=== PATIENT | male | born 1970 | race Asian ===

== ENCOUNTER 2016-06-05 09:45 | Inpatient (IN) | payer MEDICARE, MEDICAID ==
[~2016-06-05] VITALS: Ht 172.7 cm; Wt 83.9 kg
[~2016-06-05 09:45] MED LIST: CELEXA20 MG ORAL; CLOZARIL100 MG ORAL; DIVALPROEX SOD500 MG PO; TOPIRAMATE100 MG ORAL
[2016-06-05] MEDS ORDERED: IBUPROFEN600 MG ORAL (14:44)
[2016-06-05 16:00] VITALS: BP 93/59
[2016-06-05] MEDS: Depakote 500mg tab ORAL SCH (18:41)
[2016-06-05] MEDS: Citalopram 20mg Tab ORAL SCH (18:41)
[2016-06-05] MEDS: Topiramate 100mg tab ORAL SCH (18:41)
[2016-06-05] MEDS: NS w/KCl 20mEq 1,000 ML IV SCH (18:42)
[2016-06-05 18:57] LABS: BASOPHILS % (AUTO) 0.3 % (0.0-2.0); EOSINOPHILS % (AUTO) 0.7 % (0.0-3.0); MEAN CORPUSCULAR HEMOGLOBIN 33.3 PG (27.0-31.0); MEAN CORPUSCULAR HGB CONC 36.2 G/DL (32.0-36.0); MEAN CORPUSCULAR VOLUME 92 FL (80-99); MEAN PLATELET VOLUME 5.5 FL (6.5-10.1); MONOCYTES % (AUTO) 2.3 % (1.0-10.0); NEUTROPHILS % (AUTO) 82.6 % (45.0-75.0); PLATELET COUNT 199 K/UL (150-450); RED BLOOD COUNT 2.89 M/UL (4.70-6.10); RED CELL DISTRIBUTION WIDTH 12.8 % (11.6-14.8); WHITE BLOOD COUNT 11.3 K/UL (4.8-10.8)
[2016-06-05 19:25] LABS: TROPONIN I < 0.30 ng/mL (<=0.30)
[2016-06-05 19:28] LABS: ALANINE AMINOTRANSFERASE 14 U/L (3-41); ALBUMIN/GLOBULIN RATIO 1.6 (1.0-2.7); ANION GAP 19 (5-15); ASPARTATE AMINO TRANSFERASE 14 U/L (5-40); CALCIUM 8.5 mg/dL (8.6-10.2); CARBON DIOXIDE 18 mEQ/L (20-30); CHLORIDE 97 mEQ/L (98-107); CREATININE 0.8 mg/dL (0.7-1.2); GLOMERULAR FILTRATION RATE > 60 mL/min (>60); POTASSIUM 3.8 mEQ/L (3.4-4.9); SODIUM 134 mEQ/L (135-145); TOTAL PROTEIN 5.3 g/dL (6.6-8.7)
[2016-06-05 20:00] VITALS: BP 106/62
[2016-06-05 20:35] LABS: HEMOLYSIS 13
--- NOTE | 2016-06-05 20:35 | Infectious Diseases Prog Note ---
Assessment/Plan Assessment/Plan Full consult dictated: A) 1) possible sepsis, leukocytosis, hypotension, HR > 90, sirs criteria met, lgt, weakness 2) leg lesions, ? bacterial, no tea cellulitis 3) anemia, intellectual disability, ? sz disease, ? psychiatric disease 4) allergies - tomato, nkda, fh-nc, sh-negative, mar noted, notes and records reviewed 5) d/w RN P) 1) vancomycin and cefepime 2) panculture, check chest x-ray, check labs 3) continue treatment per primary and consultants 4) orders entered and noted 5) thank you Subjective Allergies: Coded Allergies: NO KNOWN DRUG ALLERGIES (Unverified Allergy, Unknown, 11/22/13) TOMATO (Unverified Allergy, Unknown, 11/23/13) TOMATO FOOD ALLERGY Objective Vital Signs Last 24 Hour Vital Signs Date Time Temp Pulse Resp B/P Pulse Ox O2 Delivery O2 Flow Rate FiO2 06/05/16 16:00 99.0 98 18 93/59 100 Room Air Height (Feet): 5 Height (Inches): 8.00 Weight (Pounds): 185 Laboratory Tests Test 06/05/16 18:30 White Blood Count 11.3 K/UL (4.8-10.8) H Red Blood Count 2.89 M/UL (4.70-6.10) L Hemoglobin 9.6 G/DL (14.2-18.0) L Hematocrit 26.6 % (42.0-52.0) L Mean Corpuscular Volume 92 FL (80-99) Mean Corpuscular Hemoglobin 33.3 PG (27.0-31.0) H Mean Corpuscular Hemoglobin Concent 36.2 G/DL (32.0-36.0) H Red Cell Distribution Width 12.8 % (11.6-14.8) Platelet Count 199 K/UL (150-450) Mean Platelet Volume 5.5 FL (6.5-10.1) L Neutrophils (%) (Auto) 82.6 % (45.0-75.0) H Lymphocytes (%) (Auto) 14.0 % (20.0-45.0) L Monocytes (%) (Auto) 2.3 % (1.0-10.0) Eosinophils (%) (Auto) 0.7 % (0.0-3.0) Basophils (%) (Auto) 0.3 % (0.0-2.0) Sodium Level 134 mEQ/L (135-145) L Potassium Level 3.8 mEQ/L (3.4-4.9) Chloride Level 97 mEQ/L (98-107) L Carbon Dioxide Level 18 mEQ/L (20-30) L Anion Gap 19 (5-15) H Blood Urea Nitrogen Pending Creatinine 0.8 mg/dL (0.7-1.2) Estimat Glomerular Filtration Rate > 60 mL/min (>60) Glucose Level 143 mg/dL (74-106) H Calcium Level 8.5 mg/dL (8.6-10.2) L Total Bilirubin < 0.2 mg/dL (0.0-1.2) Aspartate Amino Transf (AST/SGOT) 14 U/L (5-40) Alanine Aminotransferase (ALT/SGPT) 14 U/L (3-41) Alkaline Phosphatase 162 U/L (40-129) H Troponin I < 0.30 ng/mL (<=0.30) Total Protein 5.3 g/dL (6.6-8.7) L Albumin 3.3 g/dL (3.5-5.2) L Globulin 2.0 g/dL Albumin/Globulin Ratio 1.6 (1.0-2.7) Current Medications Medications (Trade) Dose Ordered Sig/Jemima Route PRN Reason Start Time Stop Time Status Last Admin Dose Admin Acetaminophen (Tylenol) 650 mg Q4H PRN ORAL Mild Pain (Pain Scale 1-3) 06/05/16 16:45 07/05/16 16:44 Citalopram Hydrobromide (celeXA) 40 mg DAILY ORAL 06/05/16 18:00 07/05/16 17:59 06/05/16 18:41 Clozapine (Clozaril) 50 mg DAILY ORAL 06/06/16 09:00 06/13/16 08:59 Dextrose (Dextrose 50%) STAT PRN IV Hypoglycemia 06/05/16 16:45 07/05/16 16:44 Divalproex Sodium (Depakote) 500 mg BID ORAL 06/05/16 18:00 07/05/16 17:59 06/05/16 18:41 Pantoprazole (Protonix) 40 mg DAILY ORAL 06/05/16 18:00 07/05/16 17:59 06/05/16 18:41 Sodium Chloride (NS w/KCl 20mEq) 1,000 ml @ 50 mls/hr Q20H IV 06/05/16 18:00 07/05/16 17:59 06/05/16 18:42 Topiramate (Topamax) 100 mg TWICE A DAY ORAL 06/05/16 18:00 07/05/16 17:59 06/05/16 18:41 MIRLANDE HERNANDEZ Jun 05, 2016 20:35
[2016-06-05] MEDS: Piperacillin/Tazobactam 3.375 GM in NS 110 ML IVPB SCH (21:42)
[2016-06-05] MEDS ORDERED: Vancomycin 1.5 GM in D5W 325 ML IVPB SCH (23:17)
--- NOTE | 2016-06-05 23:47 | Consultation ---
DATE OF CONSULTATION: 06/05/2016 CHIEF COMPLAINT: The patient is a 45-year-old white male, presents with chief complaint of syncopal episode. HISTORY OF PRESENT ILLNESS: The patient is a resident of [facility] [place] The patient has mental retardation. The patient is cooperative with the interview, however, much of the history and physical is obtained from the patient's chart. According to staff at the [facility] [place] the patient became dizzy on 06/04/2016. The patient passed out. The patient was not out for a long period of time, less than one minute. The patient was initially taken to [facility] emergency room. The patient was transferred to [facility] for insurance purposes. The patient presents with a chief complaint of syncopal episode to rule out sepsis. REVIEW OF SYSTEMS: Constitutional: The patient denies weight loss or weight gain. The patient denies fevers or chills. HEENT: The patient denies ear or throat pain. The patient denies headache. Cardiovascular: The patient denies palpitations or chest pain. Chest: The patient denies wheezes or shortness of breath. Abdominal: The patient denies nausea, vomiting, diarrhea, or constipation. Genitourinary: The patient denies dysuria or increased frequency of urination. Neuromuscular: The patient denies seizures or generalized weakness. PAST MEDICAL HISTORY: Significant for: 1. Mental retardation. 2. Depression. PAST SURGICAL HISTORY: The patient denies. CURRENT MEDICATIONS: 1. Motrin 600 mg one tablet p.o. every six hours. 2. Celexa 40 mg one tablet p.o. daily. 3. Clozaril 100 mg one tablet p.o. daily. 4. Depakote 500 mg one tablet p.o. twice daily. 5. Topamax 100 mg one tablet p.o. twice daily. ALLERGIES: No known drug allergies. SOCIAL HISTORY: The patient is single and lives at a [facility] [place] The patient denies tobacco or alcohol use. PHYSICAL EXAMINATION: VITAL SIGNS: Temperature 97.9, respirations 19, pulse 83, and blood pressure at [facility] initially 76/46, current is 105/55. GENERAL: The patient is a well-developed and well-nourished white male, in no apparent distress. HEENT: Eyes, pupils are equal and responsive to light and accommodation. Extraocular movements are intact. NECK: Supple. No lymphadenopathy. CHEST: Lungs are clear to auscultation bilaterally without wheezes or rales. CARDIOVASCULAR: Regular rhythm and rate. S1 and S2 are normal without murmurs, rubs, or gallops. ABDOMEN: Soft, nontender, and nondistended. Positive bowel sounds. No evidence of hepatosplenomegaly. Currently, no rebound or guarding noted. EXTREMITIES: Negative for clubbing, cyanosis, or edema. RECTAL/GENITAL: Refused. NEUROLOGIC: Cranial nerves II through XII are grossly intact without focal deficits. Motor strength is 5/5 bilaterally. Deep tendon reflexes are 2+ plantar. The patient does have a deviation of the left eye. LABORATORY DATA: Laboratory studies from [facility], urinalysis was within normal limits. Sodium initially 126, potassium 3.9, chloride 95, CO2 23, BUN 25, creatinine 0.92, and glucose 107. WBC 13.4, hemoglobin 9.7, hematocrit 29.0, and platelets 208,000. ASSESSMENT: This is a 45-year-old white male with: 1. Syncopal episode. 2. Hypotension. 3. Syncope. 4. Hyponatremia. 5. Hypotension. 6. Leukocytosis. 7. Major depression. 8. Mental retardation. TREATMENT: 1. Hyponatremia. The patient is currently receiving normal saline. A CBC and BMP are pending. 2. Syncopal episode, this may be secondary to hypotension secondary to sepsis. This may also be secondary to hyponatremia as above. Serial CBCs will be run. Cultures are pending. 3. Leukocytosis. Infectious Disease consultation was obtained with Dr. Santana. 4. Major depression. Continue Celexa as above. 5. History of mental retardation. Brodie Gillis M.D. DR: JAVON JOB#: [id number] CC:
[2016-06-06] VITALS: BP 90/54
[2016-06-06 00:07] LABS: APPEARANCE,URINE CLEAR; KETONES,URINE NEGATIVE (NEGATIVE); LEUKOCYTE ESTERASE ,URINE NEGATIVE (NEGATIVE); NITRITE,URINE NEGATIVE (NEGATIVE); PH,URINE 8 (4.5-8.0); PROTEIN,URINE NEGATIVE (NEGATIVE); UROBILINOGEN,URINE 1 MG/DL (0.0-1.0)
--- NOTE | 2016-06-06 03:48 | Consultation ---
DATE OF CONSULTATION: INFECTIOUS DISEASE CONSULTATION CONSULTING PHYSICIAN: Lisa Todd M.D. ATTENDING PHYSICIAN: Ric Isabel M.D. I was asked to by Dr. Gillis, who is covering for Dr. Isabel to see this patient. REASON FOR CONSULTATION: Possible sepsis, low blood pressure, hypotension, leukocytosis. CHIEF COMPLAINT: The patient's chief complaint coming to the hospital is sepsis, hypotension. HISTORY OF PRESENT ILLNESS: This is a 45-year-old male with intellectual disability, who is a poor historian. The patient presented at an outside hospital with hypotension with systolic blood pressure in the 70s. The patient has SIRS criteria with elevated white count, was actually over 13, to be exact was 13.4. More importantly, the differential showed significant neutrophils, there were 92.3% neutrophils. The patient was transferred to [facility] and the patient has persistent leukocytosis and relatively low blood pressure. Infectious Disease consultation was requested for antibiotic management. The patient will be placed on broad-spectrum antibiotics and vancomycin and Zosyn. Of note, the patient has also elevated alkaline phosphatase and I will get an ultrasound of the abdomen, which has been ordered. MAR was noted. Orders were noted. Notes were reviewed. REVIEW OF SYSTEMS: Constitutional: The patient has no central line or Graham. He is alert, but is a poor historian. He has fevers. He came in with a low blood pressure. Head and neck: No head pain, thrush, dysphagia, or neck pain. Cardiac: No pressure. Gastrointestinal: No nausea, vomiting, or diarrhea. Genitourinary: No Graham. Pulmonary: No congestion or shortness of breath. Skin: No rash. Extremities: No joint pain. Neurological: No seizures. PAST MEDICAL HISTORY: The patient's past medical history includes the following. The patient has a past medical history of intellectual disability, history of anemia, questionable history of seizures, and psychiatric disease based on medications. He has no history of diabetes or hypertension. ALLERGIES: He has no known drug allergies. He is allergic to tomatoes. FAMILY HISTORY: Noncontributory. Negative for exposure to tuberculosis or cancer. SOCIAL HISTORY: Negative for smoking, alcohol, or drug abuse. MEDICATIONS: Upon reviewing the MAR, the patient is on the following medications. He is on Clozaril, Protonix, Celexa, Depakote, Topamax, and Tylenol. Outside medications noted and reconciliated. Antibiotics, he was placed on vancomycin and Zosyn. Please see medications and past medical history in medical order. PHYSICAL EXAMINATION: GENERAL: Alert and responsive. He is mildly lethargic, but is arousable and responsive, in no acute distress. VITAL SIGNS: Temperature 99.0, pulse rate 98, respiratory rate 18, blood pressure relatively low 92/59, and saturation 100%. Blood pressure at an outside facility was in the 70s and heart rate he was tachycardic. HEAD AND NECK: Oral exam, no thrush. Eye exam, no icterus. Neck is supple. Normocephalic. No JVD. No neck stiffness. HEART: Regular. No gallop or murmur. No obvious frictional rub. ABDOMEN: Soft. Positive bowel sounds. Nontender. No organomegaly. LUNGS: Clear bilaterally. No rhonchi or rales. SKIN: No obvious maculopapular rash, however, on the right lower extremity, he has some lesions. There is no obvious cellulitis or abscess, but there is mild erythema around the lesions. MUSCULOSKELETAL: No evidence of septic arthritis. Lower extremities, cellulitis. PERIPHERAL VASCULAR: No cyanosis or gangrene. RECTAL: Deferred. GENITOURINARY: No Graham. No CVA tenderness. LINES: Line sites without phlebitis. NEUROLOGIC: Generalized weakness. Responsive. LABORATORY DATA: Laboratory data is as follows: Creatinine is 0.8. Alkaline phosphatase is 162. White count 11.3, hemoglobin 9.6, and platelet count is 199,000. Outside white cell count was 13.4 with 92% neutrophils. Cultures are pending at this time. Urinalysis is pending. Chest x-ray is pending. ASSESSMENT AND PLAN: 1. The patient has possible sepsis with leukocytosis and hypotension and systemic inflammatory response syndrome criteria. White count was 13.4, which is more than 12 and heart rate has been consistently over 90. The patient because of persistent low blood pressure, I have a low threshold for antibiotics and we will place the patient on vancomycin and Zosyn pending cultures including blood cultures, urinalysis, culture and sensitivity, and . Must consider cholecystitis because of elevated alkaline phosphatase, we will get ultrasound. Continue vancomycin and Zosyn pending workup. Once the workup is back, we could tailor antibiotics or discontinue if everything is negative. In regards to the lesions on the leg, I am not clear if this is secondary to bacterial infection. There is no tea abscess or cellulitis of the lesions on the right leg. 2. Anemia. 3. Intellectual disability. 4. Questionable history of seizures based on medications. 5. Questionable history of psychiatric disease based on medications. 6. Allergies to tomatoes. 7. No known allergies. 8. Family history is noncontributory. 9. Social history is negative. 10. MAR was noted. 11. Notes were reviewed. 12. Case was discussed with RN. 13. Continue treatment per primary consultants. 14. Skin care per protocol. Thank you. I will follow. Lisa Todd M.D. DR: ALO JOB#: [id number] CC:
[2016-06-06 04:00] VITALS: BP 97/57
[2016-06-06] MEDS: Piperacillin/Tazobactam 3.375 GM in NS 110 ML IVPB SCH ×3 (06:05→22:31)
[2016-06-06 06:15] LABS: BASOPHILS % (AUTO) 0.6 % (0.0-2.0); EOSINOPHILS % (AUTO) 1.9 % (0.0-3.0); LYMPHOCYTES % (AUTO) 16.8 % (20.0-45.0); MEAN CORPUSCULAR HEMOGLOBIN 31.4 PG (27.0-31.0); MEAN CORPUSCULAR HGB CONC 34.6 G/DL (32.0-36.0); MEAN CORPUSCULAR VOLUME 91 FL (80-99); MONOCYTES % (AUTO) 5.9 % (1.0-10.0); NEUTROPHILS % (AUTO) 74.8 % (45.0-75.0); PLATELET COUNT 191 K/UL (150-450); RED BLOOD COUNT 3.53 M/UL (4.70-6.10); RED CELL DISTRIBUTION WIDTH 11.9 % (11.6-14.8); WHITE BLOOD COUNT 9.8 K/UL (4.8-10.8)
[2016-06-06 06:42] LABS: ANION GAP 15 (5-15); CALCIUM 8.3 mg/dL (8.6-10.2); CARBON DIOXIDE 27 mEQ/L (20-30); CHLORIDE 93 mEQ/L (98-107); CREATININE 0.8 mg/dL (0.7-1.2); GLOMERULAR FILTRATION RATE > 60 mL/min (>60); HEMOLYSIS 1; POTASSIUM 3.9 mEQ/L (3.4-4.9); SODIUM 135 mEQ/L (135-145); TROPONIN I < 0.30 ng/mL (<=0.30)
[2016-06-06 06:43] LABS: BILIRUBIN,DIRECT 0.3 mg/dL (0.1-0.3); TOTAL PROTEIN 6.1 g/dL (6.6-8.7)
[2016-06-06 08:00] VITALS: BP 101/46
[2016-06-06] MEDS: Topiramate 100mg tab ORAL SCH ×2 (08:56→17:28)
[2016-06-06] MEDS: Citalopram 20mg Tab ORAL SCH (08:56)
[2016-06-06] MEDS: Depakote 500mg tab ORAL SCH ×2 (08:57→17:28)
[2016-06-06] MEDS ORDERED: Vancomycin 1.5 GM in D5W 325 ML IVPB SCH (10:00)
--- NOTE | 2016-06-06 10:34 | Diagnostic Imaging Report ---
Indication: COUGH Technique: One view of the chest Comparison: none Findings: There are low lung volumes and slight elevation left hemidiaphragm. There is some atelectasis at the left lung base. There is hazy infiltrate throughout the right lung. There is equivocal blunting of left costophrenic sulcus, small effusion not excludable. The heart is upper limits of normal in size. Impression: Left basilar atelectasis and elevated left hemidiaphragm. Possible small left pleural effusion Diffuse faint infiltrates throughout the right lung. Correlate with clinical findings
[2016-06-06] MEDS: Vancomycin 1.5 GM in D5W 325 ML IVPB SCH (11:17)
[2016-06-06 12:00] VITALS: BP 93/57
[2016-06-06] MEDS: NS w/KCl 20mEq 1,000 ML IV SCH (13:32)
--- NOTE | 2016-06-06 14:08 | Cardiac Electrophysiology PN ---
Subjective Subjective [id number] Objective Last 24 Hour Vital Signs Date Time Temp Pulse Resp B/P Pulse Ox O2 Delivery O2 Flow Rate FiO2 06/06/16 12:00 79 06/06/16 12:00 97.2 82 20 93/57 98 Room Air 06/06/16 08:00 70 06/06/16 08:00 98.1 68 18 101/46 97 Room Air 06/06/16 04:00 87 06/06/16 04:00 97.7 73 18 97/57 100 Room Air 06/06/16 00:00 98.1 79 20 90/54 96 Room Air 06/06/16 00:00 81 06/05/16 20:00 107 06/05/16 20:00 98.6 84 16 106/62 100 Room Air 06/05/16 16:00 99.0 98 18 93/59 100 Room Air 06/05/16 16:00 94 Intake and Output 06/05/16 06/06/16 19:00 07:00 Intake Total 1333.33 ml Balance 1333.33 ml Intake Oral 360 ml IV Total 973.33 ml # Voids 6 # Bowel Movements 1 1 Laboratory Tests Test 06/05/16 18:30 06/05/16 22:30 06/05/16 23:30 06/06/16 04:35 White Blood Count 11.3 K/UL (4.8-10.8) H 9.8 K/UL (4.8-10.8) Red Blood Count 2.89 M/UL (4.70-6.10) L 3.53 M/UL (4.70-6.10) L Hemoglobin 9.6 G/DL (14.2-18.0) L 11.1 G/DL (14.2-18.0) L Hematocrit 26.6 % (42.0-52.0) L 32.0 % (42.0-52.0) L Mean Corpuscular Volume 92 FL (80-99) 91 FL (80-99) Mean Corpuscular Hemoglobin 33.3 PG (27.0-31.0) H 31.4 PG (27.0-31.0) H Mean Corpuscular Hemoglobin Concent 36.2 G/DL (32.0-36.0) H 34.6 G/DL (32.0-36.0) Red Cell Distribution Width 12.8 % (11.6-14.8) 11.9 % (11.6-14.8) Platelet Count 199 K/UL (150-450) 191 K/UL (150-450) Mean Platelet Volume 5.5 FL (6.5-10.1) L 11.0 FL (6.5-10.1) H Neutrophils (%) (Auto) 82.6 % (45.0-75.0) H 74.8 % (45.0-75.0) Lymphocytes (%) (Auto) 14.0 % (20.0-45.0) L 16.8 % (20.0-45.0) L Monocytes (%) (Auto) 2.3 % (1.0-10.0) 5.9 % (1.0-10.0) Eosinophils (%) (Auto) 0.7 % (0.0-3.0) 1.9 % (0.0-3.0) Basophils (%) (Auto) 0.3 % (0.0-2.0) 0.6 % (0.0-2.0) Sodium Level 134 mEQ/L (135-145) L 135 mEQ/L (135-145) Potassium Level 3.8 mEQ/L (3.4-4.9) 3.9 mEQ/L (3.4-4.9) Chloride Level 97 mEQ/L (98-107) L 93 mEQ/L (98-107) L Carbon Dioxide Level 18 mEQ/L (20-30) L 27 mEQ/L (20-30) Anion Gap 19 (5-15) H 15 (5-15) Blood Urea Nitrogen 16 mg/dL (7-23) 7 mg/dL (7-23) Creatinine 0.8 mg/dL (0.7-1.2) 0.8 mg/dL (0.7-1.2) Estimat Glomerular Filtration Rate > 60 mL/min (>60) > 60 mL/min (>60) Glucose Level 143 mg/dL (74-106) H 205 mg/dL (74-106) H Calcium Level 8.5 mg/dL (8.6-10.2) L 8.3 mg/dL (8.6-10.2) L Total Bilirubin < 0.2 mg/dL (0.0-1.2) 0.9 mg/dL (0.0-1.2) Aspartate Amino Transf (AST/SGOT) 14 U/L (5-40) 28 U/L (5-40) Alanine Aminotransferase (ALT/SGPT) 14 U/L (3-41) 23 U/L (3-41) Alkaline Phosphatase 162 U/L (40-129) H 66 U/L (40-129) Troponin I < 0.30 ng/mL (<=0.30) < 0.30 ng/mL (<=0.30) Total Protein 5.3 g/dL (6.6-8.7) L 6.1 g/dL (6.6-8.7) L Albumin 3.3 g/dL (3.5-5.2) L 3.0 g/dL (3.5-5.2) L Globulin 2.0 g/dL Albumin/Globulin Ratio 1.6 (1.0-2.7) Random Vancomycin Level 3.3 ug/mL Urine Color Pale yellow Urine Appearance Clear Urine pH 8 (4.5-8.0) Urine Specific Murray 1.015 (1.005-1.035) Urine Protein Negative (NEGATIVE) Urine Glucose (UA) Negative (NEGATIVE) Urine Ketones Negative (NEGATIVE) Urine Occult Blood Negative (NEGATIVE) Urine Nitrite Negative (NEGATIVE) Urine Bilirubin Negative (NEGATIVE) Urine Urobilinogen 1 MG/DL (0.0-1.0) H Urine Leukocyte Esterase Negative (NEGATIVE) Direct Bilirubin 0.3 mg/dL (0.1-0.3) LIVIER THOMPSON Jun 06, 2016 14:08
--- NOTE | 2016-06-06 14:27 | Diagnostic Imaging Report ---
Indication: Abnormal alkaline phosphatase, abdominal pain Technique: Barr-scale and duplex images of the upper abdomen were obtained Comparison: None Findings: Exam is limited due to body habitus. Gallbladder is unremarkable, without stones, wall thickening, nor pericholecystic fluid. Sonographic Augustin's sign is negative. Common bile duct measures 4 mm in diameter. No intrahepatic biliary ductal dilatation. Liver demonstrates diffusely increased echogenicity, consistent with diffuse hepatocellular disease, most likely fatty change. It is mildly enlarged. Note, however, suboptimal visualization of the left hepatic lobe. Portal vein and hepatic veins are patent.. Pancreas is obscured by bowel gas. Spleen is unremarkable. Left kidney measures 10.8 cm in length. Right kidney measures 12.4 cm length. Both kidneys demonstrate normal echogenicity. There is no hydronephrosis. There is a 13 mm cyst in the left kidney. Abdominal aorta is partially obscured by bowel gas, visualized portions are non-aneurysmal. Impression: Liver demonstrates diffusely increased echogenicity, consistent with diffuse hepatocellular disease, most likely fatty change. Mild hepatomegaly Negative for gallstones or dilated ducts Limited exam, with suboptimal visualization of the abdominal aorta and left hepatic lobe, absent visualization of the pancreas Incidental finding small left renal cyst
--- NOTE | 2016-06-06 15:04 | History and Physical ---
History of Present Illness General Date patient seen: Jun 06, 2016 Present Illness HPI 45 year old male with cognitive deficit, was taken to [facility], with CC of dizziness and hypotension. He was diagnosed to have sepsis and transferred to [facility] for further workup. Pt is awake, looks comfortable. It s difficult to get any history from the patient. He is just c/o of hunger now. Allergies: Coded Allergies: NO KNOWN DRUG ALLERGIES (Unverified Allergy, Unknown, 11/22/13) TOMATO (Unverified Allergy, Unknown, 11/23/13) TOMATO FOOD ALLERGY Medication History Scheduled Citalopram Hydrobromide* (Celexa*), 40 MG ORAL DAILY, (Reported) Clozapine* (Clozaril*), 50 MG ORAL DAILY Divalproex Sodium (Divalproex Sodium), 500 MG PO BID, (Reported) Topiramate* (Topamax*), 100 MG ORAL TWICE A DAY, (Reported) Scheduled PRN Ibuprofen* (Motrin*), 600 MG ORAL Q8H PRN for For Pain, (Reported) Patient History Healthcare decision maker Resuscitation status Full Code Advanced Directive on File Past Medical/Surgical History Past Medical/Surgical History: (1) Development delay Review of Systems All Other Systems: negative except mentioned in HPI Physical Exam General Appearance: WD/WN Lines, tubes and drains: peripheral HEENT: normocephalic, atraumatic Neck: non-tender, normal alignment Respiratory/Chest: chest wall non-tender, lungs clear Cardiovascular/Chest: normal peripheral pulses, normal rate Genitourinary/Rectal: normal genital exam Extremities: normal range of motion Last 24 Hour Vital Signs Date Time Temp Pulse Resp B/P Pulse Ox O2 Delivery O2 Flow Rate FiO2 06/06/16 12:00 79 06/06/16 12:00 97.2 82 20 93/57 98 Room Air 06/06/16 08:00 70 06/06/16 08:00 98.1 68 18 101/46 97 Room Air 06/06/16 04:00 87 06/06/16 04:00 97.7 73 18 97/57 100 Room Air 06/06/16 00:00 98.1 79 20 90/54 96 Room Air 06/06/16 00:00 81 06/05/16 20:00 107 06/05/16 20:00 98.6 84 16 106/62 100 Room Air 06/05/16 16:00 99.0 98 18 93/59 100 Room Air 06/05/16 16:00 94 Intake and Output 06/05/16 06/06/16 19:00 07:00 Intake Total 1333.33 ml Balance 1333.33 ml Intake Oral 360 ml IV Total 973.33 ml # Voids 6 # Bowel Movements 1 1 Laboratory Tests Test 06/05/16 18:30 06/05/16 22:30 06/05/16 23:30 06/06/16 04:35 White Blood Count 11.3 K/UL (4.8-10.8) H 9.8 K/UL (4.8-10.8) Red Blood Count 2.89 M/UL (4.70-6.10) L 3.53 M/UL (4.70-6.10) L Hemoglobin 9.6 G/DL (14.2-18.0) L 11.1 G/DL (14.2-18.0) L Hematocrit 26.6 % (42.0-52.0) L 32.0 % (42.0-52.0) L Mean Corpuscular Volume 92 FL (80-99) 91 FL (80-99) Mean Corpuscular Hemoglobin 33.3 PG (27.0-31.0) H 31.4 PG (27.0-31.0) H Mean Corpuscular Hemoglobin Concent 36.2 G/DL (32.0-36.0) H 34.6 G/DL (32.0-36.0) Red Cell Distribution Width 12.8 % (11.6-14.8) 11.9 % (11.6-14.8) Platelet Count 199 K/UL (150-450) 191 K/UL (150-450) Mean Platelet Volume 5.5 FL (6.5-10.1) L 11.0 FL (6.5-10.1) H Neutrophils (%) (Auto) 82.6 % (45.0-75.0) H 74.8 % (45.0-75.0) Lymphocytes (%) (Auto) 14.0 % (20.0-45.0) L 16.8 % (20.0-45.0) L Monocytes (%) (Auto) 2.3 % (1.0-10.0) 5.9 % (1.0-10.0) Eosinophils (%) (Auto) 0.7 % (0.0-3.0) 1.9 % (0.0-3.0) Basophils (%) (Auto) 0.3 % (0.0-2.0) 0.6 % (0.0-2.0) Sodium Level 134 mEQ/L (135-145) L 135 mEQ/L (135-145) Potassium Level 3.8 mEQ/L (3.4-4.9) 3.9 mEQ/L (3.4-4.9) Chloride Level 97 mEQ/L (98-107) L 93 mEQ/L (98-107) L Carbon Dioxide Level 18 mEQ/L (20-30) L 27 mEQ/L (20-30) Anion Gap 19 (5-15) H 15 (5-15) Blood Urea Nitrogen 16 mg/dL (7-23) 7 mg/dL (7-23) Creatinine 0.8 mg/dL (0.7-1.2) 0.8 mg/dL (0.7-1.2) Estimat Glomerular Filtration Rate > 60 mL/min (>60) > 60 mL/min (>60) Glucose Level 143 mg/dL (74-106) H 205 mg/dL (74-106) H Calcium Level 8.5 mg/dL (8.6-10.2) L 8.3 mg/dL (8.6-10.2) L Total Bilirubin < 0.2 mg/dL (0.0-1.2) 0.9 mg/dL (0.0-1.2) Aspartate Amino Transf (AST/SGOT) 14 U/L (5-40) 28 U/L (5-40) Alanine Aminotransferase (ALT/SGPT) 14 U/L (3-41) 23 U/L (3-41) Alkaline Phosphatase 162 U/L (40-129) H 66 U/L (40-129) Troponin I < 0.30 ng/mL (<=0.30) < 0.30 ng/mL (<=0.30) Total Protein 5.3 g/dL (6.6-8.7) L 6.1 g/dL (6.6-8.7) L Albumin 3.3 g/dL (3.5-5.2) L 3.0 g/dL (3.5-5.2) L Globulin 2.0 g/dL Albumin/Globulin Ratio 1.6 (1.0-2.7) Random Vancomycin Level 3.3 ug/mL Urine Color Pale yellow Urine Appearance Clear Urine pH 8 (4.5-8.0) Urine Specific [place] 1.015 (1.005-1.035) Urine Protein Negative (NEGATIVE) Urine Glucose (UA) Negative (NEGATIVE) Urine Ketones Negative (NEGATIVE) Urine Occult Blood Negative (NEGATIVE) Urine Nitrite Negative (NEGATIVE) Urine Bilirubin Negative (NEGATIVE) Urine Urobilinogen 1 MG/DL (0.0-1.0) H Urine Leukocyte Esterase Negative (NEGATIVE) Direct Bilirubin 0.3 mg/dL (0.1-0.3) Height (Feet): 5 Height (Inches): 8.00 Weight (Pounds): 185 Medications Current Medications Medications (Trade) Dose Ordered Sig/Jemima Route PRN Reason Start Time Stop Time Status Last Admin Dose Admin Acetaminophen (Tylenol) 650 mg Q4H PRN ORAL Mild Pain (Pain Scale 1-3) 06/05/16 16:45 07/05/16 16:44 06/06/16 02:28 Citalopram Hydrobromide (celeXA) 40 mg DAILY ORAL 06/05/16 18:00 07/05/16 17:59 06/06/16 08:56 Clozapine (Clozaril) 50 mg DAILY ORAL 06/06/16 09:00 06/13/16 08:59 06/06/16 08:56 Dextrose (Dextrose 50%) STAT PRN IV Hypoglycemia 06/05/16 16:45 07/05/16 16:44 Divalproex Sodium (Depakote) 500 mg BID ORAL 06/05/16 18:00 07/05/16 17:59 06/06/16 08:57 Pantoprazole (Protonix) 40 mg DAILY ORAL 06/05/16 18:00 07/05/16 17:59 06/06/16 08:56 Piperacillin Sod/ Tazobactam Sod 3.375 gm/Sodium Chloride 110 ml @ 27.5 mls/hr EVERY 8 HOURS IVPB 06/05/16 22:00 06/10/16 21:59 4/7/17 13:32 Sodium Chloride (NS w/KCl 20mEq) 1,000 ml @ 50 mls/hr Q20H IV 06/05/16 18:00 07/05/16 17:59 06/06/16 13:32 Topiramate (Topamax) 100 mg TWICE A DAY ORAL 06/05/16 18:00 07/05/16 17:59 06/06/16 08:56 Vancomycin HCl 1 ea 1 ea DAILY PRN MISC Per rx protocol 06/05/16 20:45 07/05/16 20:44 Vancomycin HCl/ Dextrose (Vancomycin/D5W) 325 ml @ 162.5 mls/ hr Q12HR@0000,1200 IVPB 06/06/16 12:00 06/11/16 11:59 06/06/16 11:17 Assessment/Plan Problem List: (1) Interstitial pneumonia ICD Codes: J84.9 - Interstitial pulmonary disease, unspecified SNOMED: 80861143 (2) Sepsis ICD Codes: A41.9 - Sepsis, unspecified organism SNOMED: 13030036 (3) Syncope ICD Codes: R55 - Syncope and collapse SNOMED: 163671123 (4) Hypotension ICD Codes: I95.9 - Hypotension, unspecified SNOMED: 25989800 (5) Development delay ICD Codes: R62.50 - Unspecified lack of expected normal physiological development in childhood SNOMED: 652062988 Assessment/Plan panculture IV antibioitcs check cultures anemia w/u check sputum sputum induction PHILLIP NAYLOR Jun 06, 2016 15:04
[2016-06-06] MEDS ORDERED: Promethazine/Codeine 5ml UD ORAL PRN (15:15)
[2016-06-06 16:00] VITALS: BP 86/48
[2016-06-06 16:56] LABS: ERYTHROCYTE SEDIMENTATION RATE 56 MM/HR (0-15)
[2016-06-06 17:05] LABS: INR 1.1 (0.9-1.1)
--- NOTE | 2016-06-06 17:39 | Internal Med Progress Note ---
Subjective Date of Service: Jun 06, 2016 Physician Name Brodie Lopez Attending Physician Ric Isabel MD Current Medications Medications (Trade) Dose Ordered Sig/Jemima Route PRN Reason Start Time Stop Time Status Last Admin Dose Admin Acetaminophen (Tylenol) 650 mg Q4H PRN ORAL Mild Pain (Pain Scale 1-3) 06/05/16 16:45 07/05/16 16:44 06/06/16 02:28 Citalopram Hydrobromide (celeXA) 40 mg DAILY ORAL 06/05/16 18:00 07/05/16 17:59 06/06/16 08:56 Clozapine (Clozaril) 50 mg DAILY ORAL 06/06/16 09:00 06/13/16 08:59 06/06/16 08:56 Dextrose (Dextrose 50%) STAT PRN IV Hypoglycemia 06/05/16 16:45 07/05/16 16:44 Divalproex Sodium (Depakote) 500 mg BID ORAL 06/05/16 18:00 07/05/16 17:59 06/06/16 17:28 Pantoprazole (Protonix) 40 mg DAILY ORAL 06/05/16 18:00 07/05/16 17:59 06/06/16 08:56 Piperacillin Sod/ Tazobactam Sod 3.375 gm/Sodium Chloride 110 ml @ 27.5 mls/hr EVERY 8 HOURS IVPB 06/05/16 22:00 06/10/16 21:59 06/06/16 13:32 Promethazine HCl/ Codeine (Phenergan with Codeine) 5 ml Q4H PRN ORAL For Cough 06/06/16 15:15 07/06/16 15:14 Sodium Chloride (NS w/KCl 20mEq) 1,000 ml @ 50 mls/hr Q20H IV 06/05/16 18:00 07/05/16 17:59 06/06/16 13:32 Topiramate (Topamax) 100 mg TWICE A DAY ORAL 06/05/16 18:00 07/05/16 17:59 06/06/16 17:28 Vancomycin HCl 1 ea 1 ea DAILY PRN MISC Per rx protocol 06/05/16 20:45 07/05/16 20:44 Vancomycin HCl/ Dextrose (Vancomycin/D5W) 325 ml @ 162.5 mls/ hr Q12HR@0000,1200 IVPB 06/06/16 12:00 06/11/16 11:59 06/06/16 11:17 Allergies: Coded Allergies: NO KNOWN DRUG ALLERGIES (Unverified Allergy, Unknown, 11/22/13) TOMATO (Unverified Allergy, Unknown, 11/23/13) TOMATO FOOD ALLERGY ROS Limited/Unobtainable: No Constitutional: Reports: no symptoms HEENT: Reports: no symptoms Cardiovascular: Reports: no symptoms Respiratory: Reports: no symptoms Gastrointestinal/Abdominal: Reports: no symptoms Genitourinary: Reports: no symptoms Neurologic/Psychiatric: Reports: no symptoms Subjective 45 YO M admitted with syncope and hyponatremia. Cover for Int Med-Dr Isabel. Objective Last Vital Signs Date Time Temp Pulse Resp B/P Pulse Ox O2 Delivery O2 Flow Rate FiO2 06/06/16 16:00 97.9 76 20 86/48 96 Room Air General Appearance: WD/WN, no apparent distress, alert EENT: PERRL/EOMI, normal ENT inspection, other - exoptopia OS Neck: non-tender, normal alignment, supple Cardiovascular: normal peripheral pulses, normal rate, regular rhythm, no gallop/murmur, no JVD Respiratory/Chest: chest wall non-tender, lungs clear, normal breath sounds, no respiratory distress, no accessory muscle use Abdomen: normal bowel sounds, non tender, soft, no organomegaly, no mass Extremities: normal range of motion Neurologic: forensics analyst II-XII grossly normal, no motor/sensory deficits Skin: normal pigmentation, warm/dry Laboratory Tests Test 06/05/16 18:30 06/05/16 22:30 06/05/16 23:30 06/06/16 04:35 White Blood Count 11.3 K/UL (4.8-10.8) H 9.8 K/UL (4.8-10.8) Red Blood Count 2.89 M/UL (4.70-6.10) L 3.53 M/UL (4.70-6.10) L Hemoglobin 9.6 G/DL (14.2-18.0) L 11.1 G/DL (14.2-18.0) L Hematocrit 26.6 % (42.0-52.0) L 32.0 % (42.0-52.0) L Mean Corpuscular Volume 92 FL (80-99) 91 FL (80-99) Mean Corpuscular Hemoglobin 33.3 PG (27.0-31.0) H 31.4 PG (27.0-31.0) H Mean Corpuscular Hemoglobin Concent 36.2 G/DL (32.0-36.0) H 34.6 G/DL (32.0-36.0) Red Cell Distribution Width 12.8 % (11.6-14.8) 11.9 % (11.6-14.8) Platelet Count 199 K/UL (150-450) 191 K/UL (150-450) Mean Platelet Volume 5.5 FL (6.5-10.1) L 11.0 FL (6.5-10.1) H Neutrophils (%) (Auto) 82.6 % (45.0-75.0) H 74.8 % (45.0-75.0) Lymphocytes (%) (Auto) 14.0 % (20.0-45.0) L 16.8 % (20.0-45.0) L Monocytes (%) (Auto) 2.3 % (1.0-10.0) 5.9 % (1.0-10.0) Eosinophils (%) (Auto) 0.7 % (0.0-3.0) 1.9 % (0.0-3.0) Basophils (%) (Auto) 0.3 % (0.0-2.0) 0.6 % (0.0-2.0) Sodium Level 134 mEQ/L (135-145) L 135 mEQ/L (135-145) Potassium Level 3.8 mEQ/L (3.4-4.9) 3.9 mEQ/L (3.4-4.9) Chloride Level 97 mEQ/L (98-107) L 93 mEQ/L (98-107) L Carbon Dioxide Level 18 mEQ/L (20-30) L 27 mEQ/L (20-30) Anion Gap 19 (5-15) H 15 (5-15) Blood Urea Nitrogen 16 mg/dL (7-23) 7 mg/dL (7-23) Creatinine 0.8 mg/dL (0.7-1.2) 0.8 mg/dL (0.7-1.2) Estimat Glomerular Filtration Rate > 60 mL/min (>60) > 60 mL/min (>60) Glucose Level 143 mg/dL (74-106) H 205 mg/dL (74-106) H Calcium Level 8.5 mg/dL (8.6-10.2) L 8.3 mg/dL (8.6-10.2) L Total Bilirubin < 0.2 mg/dL (0.0-1.2) 0.9 mg/dL (0.0-1.2) Aspartate Amino Transf (AST/SGOT) 14 U/L (5-40) 28 U/L (5-40) Alanine Aminotransferase (ALT/SGPT) 14 U/L (3-41) 23 U/L (3-41) Alkaline Phosphatase 162 U/L (40-129) H 66 U/L (40-129) Troponin I < 0.30 ng/mL (<=0.30) < 0.30 ng/mL (<=0.30) Total Protein 5.3 g/dL (6.6-8.7) L 6.1 g/dL (6.6-8.7) L Albumin 3.3 g/dL (3.5-5.2) L 3.0 g/dL (3.5-5.2) L Globulin 2.0 g/dL Albumin/Globulin Ratio 1.6 (1.0-2.7) Random Vancomycin Level 3.3 ug/mL Urine Color Pale yellow Urine Appearance Clear Urine pH 8 (4.5-8.0) Urine Specific [place] 1.015 (1.005-1.035) Urine Protein Negative (NEGATIVE) Urine Glucose (UA) Negative (NEGATIVE) Urine Ketones Negative (NEGATIVE) Urine Occult Blood Negative (NEGATIVE) Urine Nitrite Negative (NEGATIVE) Urine Bilirubin Negative (NEGATIVE) Urine Urobilinogen 1 MG/DL (0.0-1.0) H Urine Leukocyte Esterase Negative (NEGATIVE) Direct Bilirubin 0.3 mg/dL (0.1-0.3) Test 06/06/16 08:00 06/06/16 16:15 Erythrocyte Sedimentation Rate 56 MM/HR (0-15) H Reticulocyte Count Pending Iron Level 38 ug/dL (59-158) L Total Iron Binding Capacity 211 ug/dL (250-400) L Percent Iron Saturation 18 % (15-50) Unsaturated Iron Binding 173 ug/dL (112-346) Lactate Dehydrogenase 222 U/L (135-230) Carcinoembryonic Antigen 1.9 ng/mL Vitamin B12 Level 533 pg/mL (211-946) Folate Pending Prothrombin Time 11.0 SEC (9.30-11.50) Prothromb Time International Ratio 1.1 (0.9-1.1) Activated Partial Thromboplast Time 30 SEC (23-33) Intake and Output 06/05/16 06/06/16 19:00 07:00 Intake Total 1333.33 ml Balance 1333.33 ml Intake Oral 360 ml IV Total 973.33 ml # Voids 6 # Bowel Movements 1 1 Assessment/Plan Problem List: (1) Hyponatremia Assessment & Plan: Resolving on IV fluids. (2) Leukocytosis Assessment & Plan: Cont vanco and zosyn. (3) Major depression Assessment & Plan: Cont clozaril. (4) Mental retardation (5) Hypotension (6) Syncope Assessment & Plan: Serial troponin. Status: not improved BRODIE LOPEZ Jun 06, 2016 17:39
[2016-06-06 19:00] VITALS: BP 92/54
[2016-06-06 19:07] LABS: RETICULOCYTE COUNT 1.7 % (0.0-2.0)
[2016-06-06] MEDS ORDERED: Tubing IV Secondary IV ONE (19:29)
[2016-06-06] MEDS ORDERED: NS 275ml ONE (19:29)
[2016-06-07] VITALS: BP 127/57
--- NOTE | 2016-06-07 00:08 | Consultation ---
DATE OF CONSULTATION: 06/06/2016 CARDIOLOGY CONSULTATION CONSULTING PHYSICIAN: Octavio Carrion M.D. REFERRING PHYSICIAN: Ric Isabel M.D. REASON FOR CONSULTATION: Syncope. HISTORY OF PRESENT ILLNESS: The patient is a 45-year-old gentleman with history of mental retardation, who was admitted to the hospital after he became dizzy and passed out on 06/04/2016. The patient was not out for a long period of time. The patient was initially taken to [facility] emergency room and was then transferred to [facility] as the patient is not a [facility] member. At the time of my evaluation, the patient is pleasantly confused. On telemetry he underwent arrhythmia overnight. REVIEW OF SYSTEMS: Negative other than what was mentioned in the history of present illness. PAST MEDICAL HISTORY: 1. Mental retardation. 2. Depression. MEDICATIONS: At the senior living include Celexa, Motrin, Clozaril, Depakote and Topamax. ALLERGIES: He has no known drug allergies. SOCIAL HISTORY: He lives in a board and care. He is single. He does not smoke or drink alcohol. PHYSICAL EXAMINATION: VITAL SIGNS: Blood pressure is 92/57, pulse 89, respiratory 20, temperature 98 degrees NECK: Showed no JVD or carotid bruits. LUNGS: Clear. CARDIOVASCULAR: Shows regular S1 and S2 with no gallop or murmur. ABDOMEN: Soft. EXTREMITIES: No pitting edema. LABORATORY DATA: White count 9.8, hemoglobin 11.9, hematocrit 32, platelet count 191,000. Sodium 135, potassium 3.9, BUN of 7, and creatinine 0.8, and glucose of 205. Alcohol level is negative. Urinalysis is negative. ASSESSMENT AND PLAN: 1. Syncopal episode. Etiology is not clear at this time. The patient was ruled out for myocardial infarction. We will do serial cardiac enzymes. His EKG is nonischemic. We will get an echocardiogram to evaluate for ejection fraction and wall motion abnormality. Neuro evaluation is also pending. 2. Possible sepsis with leukocytosis and hypotension. The patient has SIRS criteria. The patient was started on broad-spectrum antibiotics with vancomycin and Zosyn. 3. Questionable history of seizure disorder. 4. Mental retardation. Thank very much, Dr. Isabel for allowing me to participate in the care of this patient. Please do not hesitate to contact me for any questions regarding my evaluation. Octavio Carrion M.D. DR: AVINASH JOB#: [id number] CC:
[2016-06-07] MEDS: Vancomycin 1.5 GM in D5W 325 ML IVPB SCH ×2 (01:31→11:58)
[2016-06-07 04:00] VITALS: BP 108/61
[2016-06-07] MEDS: Piperacillin/Tazobactam 3.375 GM in NS 110 ML IVPB SCH ×3 (06:19→22:16)
[2016-06-07 07:30] LABS: BASOPHILS % (AUTO) 0.7 % (0.0-2.0); EOSINOPHILS % (AUTO) 1.6 % (0.0-3.0); LYMPHOCYTES % (AUTO) 13.1 % (20.0-45.0); MEAN CORPUSCULAR VOLUME 94 FL (80-99); MEAN PLATELET VOLUME 5.7 FL (6.5-10.1); MONOCYTES % (AUTO) 5.7 % (1.0-10.0); PLATELET COUNT 207 K/UL (150-450); RED BLOOD COUNT 2.73 M/UL (4.70-6.10); RED CELL DISTRIBUTION WIDTH 13.8 % (11.6-14.8); WHITE BLOOD COUNT 8.9 K/UL (4.8-10.8)
[2016-06-07 07:51] VITALS: BP 93/59
[2016-06-07 08:02] LABS: TROPONIN I < 0.30 ng/mL (<=0.30)
[2016-06-07 08:05] LABS: ANION GAP 16 (5-15); CALCIUM 8.3 mg/dL (8.6-10.2); CARBON DIOXIDE 20 mEQ/L (20-30); CHLORIDE 100 mEQ/L (98-107); CREATININE 0.8 mg/dL (0.7-1.2); GLOMERULAR FILTRATION RATE > 60 mL/min (>60); HEMOLYSIS 23; POTASSIUM 4.2 mEQ/L (3.4-4.9); SODIUM 136 mEQ/L (135-145)
[2016-06-07] MEDS: Depakote 500mg tab ORAL SCH ×2 (08:07→18:41)
[2016-06-07] MEDS: Topiramate 100mg tab ORAL SCH ×2 (08:07→18:40)
[2016-06-07] MEDS: Citalopram 20mg Tab ORAL SCH (08:08)
[2016-06-07 08:13] LABS: THYROID STIMULATING HORMONE 7.54 uIU/mL (0.300-4.500)
[2016-06-07 08:20] LABS: ANISOCYTOSIS 1+; BAND NEUTROPHILS % (MANUAL) 0 % (0-8); BASOPHILS % (MANUAL) 0 % (0-2); EOSINOPHILS % (MANUAL) 0 % (0-3); HYPOCHROMASIA 1+; LYMPHOCYTES % (MANUAL) 13 % (20-45); NEUTROPHILS % (MANUAL) 80 % (45-75); PLATELET ESTIMATE ADEQUATE; PLATELET MORPHOLOGY NORMAL; TOTAL CELLS COUNTED 100
[2016-06-07 09:18] LABS: PATH BLOOD SMEAR/OMC SENT TO PATHOLOGIST
[2016-06-07] MEDS: NS w/KCl 20mEq 1,000 ML IV SCH (10:14)
[2016-06-07 11:53] VITALS: BP 148/63
--- NOTE | 2016-06-07 11:55 | Infectious Diseases Prog Note ---
Assessment/Plan Assessment/Plan A) 1) cap pna vs aspiration/hcap pna 2) sepsis, leukocytosis better, lgt, weakness, uc-negative 3) anemia, intellectual disability, ? sz disease, ? psychiatric disease 4) allergies - tomato, nkda, fh-nc, sh-negative, mar noted, notes and records reviewed 5) d/w RN P) 1) zosyn and vancomycin 2) check sputum culture, labs and f/u chest x-ray, bc 3) continue treatment per primary and consultants 4) orders entered and noted 5) skin care per protocol Subjective Constitutional: Denies: fever HEENT: Denies: congestion Respiratory: Denies: shortness of breath Cardiovascular: Denies: chest pain Gastrointestinal/Abdominal: Denies: diarrhea, nausea, vomiting Genitourinary: Reports: other - no hinds, Denies: dysuria, hematuria Neurologic: Denies: headache Psychiatric: Denies: depression Skin: Denies: rash Hematologic: Denies: bleeding Musculoskeletal: Denies: pain Allergies: Coded Allergies: NO KNOWN DRUG ALLERGIES (Unverified Allergy, Unknown, 11/22/13) TOMATO (Unverified Allergy, Unknown, 11/23/13) TOMATO FOOD ALLERGY Objective Vital Signs Last 24 Hour Vital Signs Date Time Temp Pulse Resp B/P Pulse Ox O2 Delivery O2 Flow Rate FiO2 06/07/16 08:00 79 06/07/16 07:51 98.1 82 20 93/59 95 Room Air 06/07/16 04:00 98.0 67 20 108/61 96 Room Air 06/07/16 04:00 69 06/07/16 03:12 Room Air 06/07/16 03:12 Room Air 06/07/16 00:00 99.3 84 20 127/57 98 Room Air 06/07/16 00:00 83 06/06/16 23:08 Room Air 06/06/16 23:08 Room Air 06/06/16 19:47 Room Air 06/06/16 19:47 Room Air 06/06/16 19:45 90 06/06/16 19:00 98.2 91 20 92/54 93 Room Air 06/06/16 16:00 82 06/06/16 16:00 97.9 76 20 86/48 96 Room Air 06/06/16 15:33 77 15 98 Room Air 06/06/16 12:00 79 06/06/16 12:00 97.2 82 20 93/57 98 Room Air Height (Feet): 5 Height (Inches): 8.00 Weight (Pounds): 185 General Appearance: no acute distress HEENT: normocephalic, atraumatic, anicteric, mucous membranes moist, PERRL Respiratory/Chest: chest wall non-tender, lungs clear, normal breath sounds, no respiratory distress, crackles/rales, rhonchi - bilaterally Cardiovascular: normal rate, regular rhythm Abdomen: normal bowel sounds, soft, non tender, no organomegaly Genitourinary: other - no hinds Extremities: no cyanosis Skin: no rash Neurologic/Psychiatric: cloth inspector II-XII grossly normal, alert, oriented x 3, responsive Lymphatic: no neck adenopathy Musculoskeletal: no effusion Objective chest x-ray - right infiltrate (noted, reviewed) Microbiology Date/Time Source Procedure Growth Status 06/05/16 23:30 Urine,Clean Catch Urine Culture - Preliminary NO GROWTH AFTER 24 HOURS Resulted Laboratory Tests Test 06/06/16 16:15 06/07/16 00:30 06/07/16 06:15 06/07/16 11:15 Prothrombin Time 11.0 SEC (9.30-11.50) Prothromb Time International Ratio 1.1 (0.9-1.1) Activated Partial Thromboplast Time 30 SEC (23-33) Stool Occult Blood Positive (NEGATIVE) White Blood Count 8.9 K/UL (4.8-10.8) Red Blood Count 2.73 M/UL (4.70-6.10) L Hemoglobin 8.7 G/DL (14.2-18.0) L Hematocrit 25.6 % (42.0-52.0) L Mean Corpuscular Volume 94 FL (80-99) Mean Corpuscular Hemoglobin 32.0 PG (27.0-31.0) H Mean Corpuscular Hemoglobin Concent 34.0 G/DL (32.0-36.0) Red Cell Distribution Width 13.8 % (11.6-14.8) Platelet Count 207 K/UL (150-450) Mean Platelet Volume 5.7 FL (6.5-10.1) L Neutrophils (%) (Auto) 79.0 % (45.0-75.0) H Lymphocytes (%) (Auto) 13.1 % (20.0-45.0) L Monocytes (%) (Auto) 5.7 % (1.0-10.0) Eosinophils (%) (Auto) 1.6 % (0.0-3.0) Basophils (%) (Auto) 0.7 % (0.0-2.0) Sodium Level 136 mEQ/L (135-145) Potassium Level 4.2 mEQ/L (3.4-4.9) Chloride Level 100 mEQ/L (98-107) Carbon Dioxide Level 20 mEQ/L (20-30) Anion Gap 16 (5-15) H Blood Urea Nitrogen 18 mg/dL (7-23) Creatinine 0.8 mg/dL (0.7-1.2) Estimat Glomerular Filtration Rate > 60 mL/min (>60) Glucose Level 85 mg/dL (74-106) # Calcium Level 8.3 mg/dL (8.6-10.2) L Troponin I < 0.30 ng/mL (<=0.30) Pro-B-Type Natriuretic Peptide 168 pg/mL (0-125) H Thyroid Stimulating Hormone (TSH) 7.540 uIU/mL (0.300-4.500) Free Thyroxine 0.92 ng/dL (0.86-1.85) Vancomycin Level Trough Pending Current Medications Medications (Trade) Dose Ordered Sig/Jemima Route PRN Reason Start Time Stop Time Status Last Admin Dose Admin Acetaminophen (Tylenol) 650 mg Q4H PRN ORAL Mild Pain (Pain Scale 1-3) 06/05/16 16:45 07/05/16 16:44 06/06/16 19:55 Citalopram Hydrobromide (celeXA) 40 mg DAILY ORAL 06/05/16 18:00 07/05/16 17:59 06/07/16 08:08 Clozapine (Clozaril) 50 mg DAILY ORAL 06/06/16 09:00 06/13/16 08:59 06/07/16 08:08 Dextrose (Dextrose 50%) STAT PRN IV Hypoglycemia 06/05/16 16:45 07/05/16 16:44 Divalproex Sodium (Depakote) 500 mg BID ORAL 06/05/16 18:00 07/05/16 17:59 06/07/16 08:07 Pantoprazole (Protonix) 40 mg DAILY ORAL 06/05/16 18:00 07/05/16 17:59 06/07/16 08:08 Piperacillin Sod/ Tazobactam Sod 3.375 gm/Sodium Chloride 110 ml @ 27.5 mls/hr EVERY 8 HOURS IVPB 06/05/16 22:00 06/10/16 21:59 06/07/16 06:19 Promethazine HCl/ Codeine (Phenergan with Codeine) 5 ml Q4H PRN ORAL For Cough 06/06/16 15:15 07/06/16 15:14 Sodium Chloride (NS w/KCl 20mEq) 1,000 ml @ 50 mls/hr Q20H IV 06/05/16 18:00 07/05/16 17:59 06/07/16 10:14 Topiramate (Topamax) 100 mg TWICE A DAY ORAL 06/05/16 18:00 07/05/16 17:59 06/07/16 08:07 Vancomycin HCl 1 ea 1 ea DAILY PRN MISC Per rx protocol 06/05/16 20:45 07/05/16 20:44 Vancomycin HCl/ Dextrose (Vancomycin/D5W) 325 ml @ 162.5 mls/ hr Q12HR@0000,1200 IVPB 06/06/16 12:00 06/11/16 11:59 06/07/16 01:31 MIRLANDE HERNANDEZ Jun 07, 2016 11:55
[2016-06-07 12:00] VITALS: BP 110/63
--- NOTE | 2016-06-07 13:11 | Cardiac Electrophysiology PN ---
Assessment/Plan Assessment/Plan 1. Syncopal episode. Etiology is not clear at this time. The patient was ruled out for myocardial infarction. EKG is nonischemic. Echocardiogram final report pending. EF 55% preliminary. 2. Possible sepsis with leukocytosis and hypotension. The patient has SIRS criteria. On broad-spectrum antibiotics with vancomycin and Zosyn. 3. Questionable history of seizure disorder. 4. Mental retardation. MARTIN RN Subjective Subjective No chest pain or SOB. In SR. Wants to go home. Objective Last 24 Hour Vital Signs Date Time Temp Pulse Resp B/P Pulse Ox O2 Delivery O2 Flow Rate FiO2 06/07/16 11:53 97.7 91 20 148/63 95 Room Air 06/07/16 08:00 79 06/07/16 07:51 98.1 82 20 93/59 95 Room Air 06/07/16 04:00 98.0 67 20 108/61 96 Room Air 06/07/16 04:00 69 06/07/16 03:12 Room Air 06/07/16 03:12 Room Air 06/07/16 00:00 99.3 84 20 127/57 98 Room Air 06/07/16 00:00 83 06/06/16 23:08 Room Air 06/06/16 23:08 Room Air 06/06/16 19:47 Room Air 06/06/16 19:47 Room Air 06/06/16 19:45 90 06/06/16 19:00 98.2 91 20 92/54 93 Room Air 06/06/16 16:00 82 06/06/16 16:00 97.9 76 20 86/48 96 Room Air 06/06/16 15:33 77 15 98 Room Air Intake and Output 06/06/16 06/07/16 19:00 07:00 Intake Total 2090.0 ml 1535.0 ml Output Total 1000 ml 450 ml Balance 1090.0 ml 1085.0 ml Intake Oral 1000 ml 290 ml IV Total 1090.0 ml 1245.0 ml Output Urine Total 1000 ml 450 ml # Voids 2 6 # Bowel Movements 1 3 Laboratory Tests Test 06/06/16 16:15 06/07/16 00:30 06/07/16 06:15 06/07/16 11:15 Prothrombin Time 11.0 SEC (9.30-11.50) Prothromb Time International Ratio 1.1 (0.9-1.1) Activated Partial Thromboplast Time 30 SEC (23-33) Stool Occult Blood Positive (NEGATIVE) White Blood Count 8.9 K/UL (4.8-10.8) Red Blood Count 2.73 M/UL (4.70-6.10) L Hemoglobin 8.7 G/DL (14.2-18.0) L Hematocrit 25.6 % (42.0-52.0) L Mean Corpuscular Volume 94 FL (80-99) Mean Corpuscular Hemoglobin 32.0 PG (27.0-31.0) H Mean Corpuscular Hemoglobin Concent 34.0 G/DL (32.0-36.0) Red Cell Distribution Width 13.8 % (11.6-14.8) Platelet Count 207 K/UL (150-450) Mean Platelet Volume 5.7 FL (6.5-10.1) L Neutrophils (%) (Auto) 79.0 % (45.0-75.0) H Lymphocytes (%) (Auto) 13.1 % (20.0-45.0) L Monocytes (%) (Auto) 5.7 % (1.0-10.0) Eosinophils (%) (Auto) 1.6 % (0.0-3.0) Basophils (%) (Auto) 0.7 % (0.0-2.0) Sodium Level 136 mEQ/L (135-145) Potassium Level 4.2 mEQ/L (3.4-4.9) Chloride Level 100 mEQ/L (98-107) Carbon Dioxide Level 20 mEQ/L (20-30) Anion Gap 16 (5-15) H Blood Urea Nitrogen 18 mg/dL (7-23) Creatinine 0.8 mg/dL (0.7-1.2) Estimat Glomerular Filtration Rate > 60 mL/min (>60) Glucose Level 85 mg/dL (74-106) # Calcium Level 8.3 mg/dL (8.6-10.2) L Troponin I < 0.30 ng/mL (<=0.30) Pro-B-Type Natriuretic Peptide 168 pg/mL (0-125) H Thyroid Stimulating Hormone (TSH) 7.540 uIU/mL (0.300-4.500) Free Thyroxine 0.92 ng/dL (0.86-1.85) Vancomycin Level Trough 13.0 ug/mL (5.0-12.0) H Microbiology Date/Time Source Procedure Growth Status 06/05/16 23:30 Urine,Clean Catch Urine Culture - Preliminary NO GROWTH AFTER 24 HOURS Resulted Objective NECK: Showed no JVD or carotid bruits. LUNGS: Clear. CARDIOVASCULAR: Shows regular S1 and S2 with no gallop or murmur. ABDOMEN: Soft. EXTREMITIES: No pitting edema. LIVIER THOMPSON Jun 07, 2016 13:11
--- NOTE | 2016-06-07 13:25 | Internal Med Progress Note ---
Subjective Date of Service: Jun 07, 2016 Physician Name Jeff Lopez Attending Physician Ric Isabel MD Current Medications Medications (Trade) Dose Ordered Sig/Jemima Route PRN Reason Start Time Stop Time Status Last Admin Dose Admin Acetaminophen (Tylenol) 650 mg Q4H PRN ORAL Mild Pain (Pain Scale 1-3) 06/05/16 16:45 07/05/16 16:44 06/06/16 19:55 Citalopram Hydrobromide (celeXA) 40 mg DAILY ORAL 06/05/16 18:00 07/05/16 17:59 06/07/16 08:08 Clozapine (Clozaril) 50 mg DAILY ORAL 06/06/16 09:00 06/13/16 08:59 06/07/16 08:08 Dextrose (Dextrose 50%) STAT PRN IV Hypoglycemia 06/05/16 16:45 07/05/16 16:44 Divalproex Sodium (Depakote) 500 mg BID ORAL 06/05/16 18:00 07/05/16 17:59 06/07/16 08:07 Pantoprazole (Protonix) 40 mg DAILY ORAL 06/05/16 18:00 07/05/16 17:59 06/07/16 08:08 Piperacillin Sod/ Tazobactam Sod 3.375 gm/Sodium Chloride 110 ml @ 27.5 mls/hr EVERY 8 HOURS IVPB 06/05/16 22:00 06/10/16 21:59 06/07/16 06:19 Promethazine HCl/ Codeine (Phenergan with Codeine) 5 ml Q4H PRN ORAL For Cough 06/06/16 15:15 07/06/16 15:14 Sodium Chloride (NS w/KCl 20mEq) 1,000 ml @ 50 mls/hr Q20H IV 06/05/16 18:00 07/05/16 17:59 06/07/16 10:14 Topiramate (Topamax) 100 mg TWICE A DAY ORAL 06/05/16 18:00 07/05/16 17:59 06/07/16 08:07 Vancomycin HCl 1 ea 1 ea DAILY PRN MISC Per rx protocol 06/05/16 20:45 07/05/16 20:44 Vancomycin HCl/ Dextrose (Vancomycin/D5W) 325 ml @ 162.5 mls/ hr Q12HR@0000,1200 IVPB 06/06/16 12:00 06/11/16 11:59 06/07/16 11:58 Allergies: Coded Allergies: NO KNOWN DRUG ALLERGIES (Unverified Allergy, Unknown, 11/22/13) TOMATO (Unverified Allergy, Unknown, 11/23/13) TOMATO FOOD ALLERGY ROS Limited/Unobtainable: No Constitutional: Reports: no symptoms HEENT: Reports: no symptoms Cardiovascular: Reports: no symptoms Respiratory: Reports: no symptoms Gastrointestinal/Abdominal: Reports: no symptoms Genitourinary: Reports: no symptoms Neurologic/Psychiatric: Reports: no symptoms Subjective 45 YO M admitted with syncope and hyponatremia. Cover for Int [place]-Dr Isabel. Objective Last Vital Signs Date Time Temp Pulse Resp B/P Pulse Ox O2 Delivery O2 Flow Rate FiO2 06/07/16 12:00 97.7 91 20 110/63 95 Room Air Laboratory Tests Test 06/06/16 16:15 06/07/16 00:30 06/07/16 06:15 06/07/16 11:15 Prothrombin Time 11.0 SEC (9.30-11.50) Prothromb Time International Ratio 1.1 (0.9-1.1) Activated Partial Thromboplast Time 30 SEC (23-33) Stool Occult Blood Positive (NEGATIVE) White Blood Count 8.9 K/UL (4.8-10.8) Red Blood Count 2.73 M/UL (4.70-6.10) L Hemoglobin 8.7 G/DL (14.2-18.0) L Hematocrit 25.6 % (42.0-52.0) L Mean Corpuscular Volume 94 FL (80-99) Mean Corpuscular Hemoglobin 32.0 PG (27.0-31.0) H Mean Corpuscular Hemoglobin Concent 34.0 G/DL (32.0-36.0) Red Cell Distribution Width 13.8 % (11.6-14.8) Platelet Count 207 K/UL (150-450) Mean Platelet Volume 5.7 FL (6.5-10.1) L Neutrophils (%) (Auto) 79.0 % (45.0-75.0) H Lymphocytes (%) (Auto) 13.1 % (20.0-45.0) L Monocytes (%) (Auto) 5.7 % (1.0-10.0) Eosinophils (%) (Auto) 1.6 % (0.0-3.0) Basophils (%) (Auto) 0.7 % (0.0-2.0) Sodium Level 136 mEQ/L (135-145) Potassium Level 4.2 mEQ/L (3.4-4.9) Chloride Level 100 mEQ/L (98-107) Carbon Dioxide Level 20 mEQ/L (20-30) Anion Gap 16 (5-15) H Blood Urea Nitrogen 18 mg/dL (7-23) Creatinine 0.8 mg/dL (0.7-1.2) Estimat Glomerular Filtration Rate > 60 mL/min (>60) Glucose Level 85 mg/dL (74-106) # Calcium Level 8.3 mg/dL (8.6-10.2) L Troponin I < 0.30 ng/mL (<=0.30) Pro-B-Type Natriuretic Peptide 168 pg/mL (0-125) H Thyroid Stimulating Hormone (TSH) 7.540 uIU/mL (0.300-4.500) Free Thyroxine 0.92 ng/dL (0.86-1.85) Vancomycin Level Trough 13.0 ug/mL (5.0-12.0) H Microbiology Date/Time Source Procedure Growth Status 06/05/16 23:30 Urine,Clean Catch Urine Culture - Preliminary NO GROWTH AFTER 24 HOURS Resulted Intake and Output 06/06/16 06/07/16 19:00 07:00 Intake Total 2090.0 ml 1535.0 ml Output Total 1000 ml 450 ml Balance 1090.0 ml 1085.0 ml Intake Oral 1000 ml 290 ml IV Total 1090.0 ml 1245.0 ml Output Urine Total 1000 ml 450 ml # Voids 2 6 # Bowel Movements 1 3 Objective General Appearance: WD/WN, no apparent distress, alert EENT: PERRL/EOMI, normal ENT inspection, other - exoptopia OS Neck: non-tender, normal alignment, supple Cardiovascular: normal peripheral pulses, normal rate, regular rhythm, no gallop/murmur, no JVD Respiratory/Chest: chest wall non-tender, lungs clear, normal breath sounds, no respiratory distress, no accessory muscle use Abdomen: normal bowel sounds, non tender, soft, no organomegaly, no mass Extremities: normal range of motion 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 (2) Leukocytosis Assessment & Plan: Cont vanco and zosyn. (3) Major depression Assessment & Plan: Cont clozaril. (4) Mental retardation (5) Hypotension (6) Syncope Assessment & Plan: Serial troponin. Status: progressing JEFF LOPEZ Jun 07, 2016 13:25
[2016-06-07 16:00] VITALS: BP 117/65
[2016-06-07] MEDS ORDERED: NS 275ml ONE (17:27)
[2016-06-07] MEDS ORDERED: Tubing IV Secondary IV ONE (17:27)
--- NOTE | 2016-06-07 23:21 | Pulmonology Progress Note ---
Assessment/Plan Problems: (1) Interstitial pneumonia (2) Sepsis (3) Syncope (4) Hypotension (5) Development delay Subjective Allergies: Coded Allergies: NO KNOWN DRUG ALLERGIES (Unverified Allergy, Unknown, 11/22/13) TOMATO (Unverified Allergy, Unknown, 11/23/13) TOMATO FOOD ALLERGY Objective Last 24 Hour Vital Signs Date Time Temp Pulse Resp B/P Pulse Ox O2 Delivery O2 Flow Rate FiO2 06/07/16 22:54 85 20 93 Room Air 21 06/07/16 22:54 84 20 93 Room Air 21 06/07/16 20:00 88 20 93 Room Air 21 06/07/16 19:59 86 20 92 Room Air 06/07/16 12:00 89 06/07/16 12:00 97.7 91 20 110/63 95 Room Air 06/07/16 08:00 79 06/07/16 07:51 98.1 82 20 93/59 95 Room Air 06/07/16 04:00 98.0 67 20 108/61 96 Room Air 06/07/16 04:00 69 06/07/16 03:12 Room Air 06/07/16 03:12 Room Air 06/07/16 00:00 99.3 84 20 127/57 98 Room Air 06/07/16 00:00 83 Intake and Output 06/06/16 06/07/16 19:00 07:00 Intake Total 2090.0 ml 1535.0 ml Output Total 1000 ml 450 ml Balance 1090.0 ml 1085.0 ml Intake Oral 1000 ml 290 ml IV Total 1090.0 ml 1245.0 ml Output Urine Total 1000 ml 450 ml # Voids 2 6 # Bowel Movements 1 3 Microbiology Date/Time Source Procedure Growth Status 06/05/16 23:30 Urine,Clean Catch Urine Culture - Preliminary NO GROWTH AFTER 24 HOURS Resulted Laboratory Tests 06/07/16 00:30: Stool Occult Blood Positive 06/07/16 06:15: White Blood Count 8.9, Red Blood Count 2.73L, Hemoglobin 8.7L, Hematocrit 25.6L , Mean Corpuscular Volume 94, Mean Corpuscular Hemoglobin 32.0H, Mean Corpuscular Hemoglobin Concent 34.0, Red Cell Distribution Width 13.8, Platelet Count 207, Mean Platelet Volume 5.7L, Neutrophils (%) (Auto) 79.0H, Lymphocytes (%) (Auto) 13.1L, Monocytes (%) (Auto) 5.7, Eosinophils (%) (Auto) 1.6, Basophils (%) (Auto) 0.7, Sodium Level 136, Potassium Level 4.2, Chloride Level 100, Carbon Dioxide Level 20, Anion Gap 16H, Blood Urea Nitrogen 18, Creatinine 0.8, Estimat Glomerular Filtration Rate > 60, Glucose Level 85#, Calcium Level 8.3L, Troponin I < 0.30, Pro-B-Type Natriuretic Peptide 168H, Thyroid Stimulating Hormone (TSH) 7.540H, Free Thyroxine 0.92 06/07/16 11:15: Vancomycin Level Trough 13.0H Current Medications Medications (Trade) Dose Ordered Sig/Jemima Route PRN Reason Start Time Stop Time Status Last Admin Dose Admin Acetaminophen (Tylenol) 650 mg Q4H PRN ORAL Mild Pain (Pain Scale 1-3) 06/05/16 16:45 07/05/16 16:44 06/06/16 19:55 Citalopram Hydrobromide (celeXA) 40 mg DAILY ORAL 06/05/16 18:00 07/05/16 17:59 06/07/16 08:08 Clozapine (Clozaril) 50 mg DAILY ORAL 06/06/16 09:00 06/13/16 08:59 06/07/16 08:08 Dextrose (Dextrose 50%) STAT PRN IV Hypoglycemia 06/05/16 16:45 07/05/16 16:44 Divalproex Sodium (Depakote) 500 mg BID ORAL 06/05/16 18:00 07/05/16 17:59 06/07/16 18:41 Levothyroxine Sodium (Synthroid) 50 mcg DAILY@0630 ORAL 06/08/16 06:30 07/08/16 06:29 Pantoprazole (Protonix) 40 mg DAILY ORAL 06/05/16 18:00 07/05/16 17:59 06/07/16 08:08 Piperacillin Sod/ Tazobactam Sod 3.375 gm/Sodium Chloride 110 ml @ 27.5 mls/hr EVERY 8 HOURS IVPB 06/05/16 22:00 06/10/16 21:59 06/07/16 22:16 Promethazine HCl/ Codeine (Phenergan with Codeine) 5 ml Q4H PRN ORAL For Cough 06/06/16 15:15 07/06/16 15:14 Sodium Chloride (NS w/KCl 20mEq) 1,000 ml @ 50 mls/hr Q20H IV 06/05/16 18:00 07/05/16 17:59 06/07/16 10:14 Topiramate (Topamax) 100 mg TWICE A DAY ORAL 06/05/16 18:00 07/05/16 17:59 06/07/16 18:40 Vancomycin HCl 1 ea 1 ea DAILY PRN MISC Per rx protocol 06/05/16 20:45 07/05/16 20:44 Vancomycin HCl/ Dextrose (Vancomycin/D5W) 325 ml @ 162.5 mls/ hr Q12HR@0000,1200 IVPB 06/06/16 12:00 06/11/16 11:59 06/07/16 11:58 PHILLIP NAYLOR Jun 07, 2016 23:21
[2016-06-08] VITALS: BP 100/55
[2016-06-08] MEDS: Vancomycin 1.5 GM in D5W 325 ML IVPB SCH ×2 (00:49→12:27)
[2016-06-08 04:00] VITALS: BP 107/55
[2016-06-08] MEDS: NS w/KCl 20mEq 1,000 ML IV SCH (06:12)
[2016-06-08] MEDS: Piperacillin/Tazobactam 3.375 GM in NS 110 ML IVPB SCH ×5 (06:26→22:03)
[2016-06-08 07:36] LABS: BASOPHILS % (AUTO) 0.8 % (0.0-2.0); EOSINOPHILS % (AUTO) 1.8 % (0.0-3.0); LYMPHOCYTES % (AUTO) 10.9 % (20.0-45.0); MEAN CORPUSCULAR HEMOGLOBIN 31.8 PG (27.0-31.0); MEAN CORPUSCULAR VOLUME 94 FL (80-99); MEAN PLATELET VOLUME 5.7 FL (6.5-10.1); NEUTROPHILS % (AUTO) 80.5 % (45.0-75.0); PLATELET COUNT 230 K/UL (150-450); RED BLOOD COUNT 2.85 M/UL (4.70-6.10); RED CELL DISTRIBUTION WIDTH 13.5 % (11.6-14.8); WHITE BLOOD COUNT 9.3 K/UL (4.8-10.8)
[2016-06-08 07:40] LABS: ANION GAP 16 (5-15); CALCIUM 8.2 mg/dL (8.6-10.2); CARBON DIOXIDE 21 mEQ/L (20-30); CHLORIDE 98 mEQ/L (98-107); CREATININE 0.7 mg/dL (0.7-1.2); GLOMERULAR FILTRATION RATE > 60 mL/min (>60); HEMOLYSIS 2; POTASSIUM 4.1 mEQ/L (3.4-4.9); SODIUM 135 mEQ/L (135-145)
[2016-06-08 08:21] VITALS: BP 92/64
[2016-06-08] MEDS: Topiramate 100mg tab ORAL SCH ×2 (08:31→17:48)
[2016-06-08] MEDS: Depakote 500mg tab ORAL SCH ×2 (08:32→17:49)
[2016-06-08] MEDS: Citalopram 20mg Tab ORAL SCH (08:32)
--- NOTE | 2016-06-08 10:29 | Infectious Diseases Prog Note ---
Assessment/Plan Assessment/Plan A) 1) cap pna vs aspiration/hcap pna - sc negative so far 2) sepsis, leukocytosis better, fevers resolved, weakness, uc-negative 3) anemia, intellectual disability, ? sz disease, ? psychiatric disease 4) allergies - tomato, nkda, fh-nc, sh-negative, mar noted, notes and records reviewed 5) d/w RN P) 1) zosyn and vancomycin - check final sputum culture 2) await f/u chest x-ray results, monitor labs 3) continue treatment per primary and consultants 4) orders entered and noted 5) skin care per protocol Subjective Constitutional: Denies: fever HEENT: Denies: congestion Respiratory: Denies: shortness of breath Cardiovascular: Denies: chest pain Gastrointestinal/Abdominal: Denies: diarrhea, nausea, vomiting Genitourinary: Reports: other - no hinds Neurologic: Denies: headache Psychiatric: Denies: depression Skin: Denies: rash Hematologic: Denies: bleeding Musculoskeletal: Denies: pain Allergies: Coded Allergies: NO KNOWN DRUG ALLERGIES (Unverified Allergy, Unknown, 11/22/13) TOMATO (Unverified Allergy, Unknown, 11/23/13) TOMATO FOOD ALLERGY Objective Vital Signs Last 24 Hour Vital Signs Date Time Temp Pulse Resp B/P Pulse Ox O2 Delivery O2 Flow Rate FiO2 06/08/16 08:21 97.0 69 18 92/64 95 Room Air 06/08/16 04:00 66 06/08/16 04:00 97.3 75 20 107/55 95 Room Air 06/08/16 03:06 81 20 95 Room Air 06/08/16 03:06 80 20 94 Room Air 06/08/16 00:00 74 06/08/16 00:00 97.9 75 20 100/55 97 Room Air 06/07/16 23:43 87 06/07/16 22:54 85 20 93 Room Air 21 06/07/16 22:54 84 20 93 Room Air 06/07/16 20:00 88 20 93 Room Air 21 06/07/16 19:59 86 20 92 Room Air 06/07/16 16:00 89 06/07/16 16:00 97.5 87 20 117/65 95 Room Air 06/07/16 12:00 89 06/07/16 12:00 97.7 91 20 110/63 95 Room Air Height (Feet): 5 Height (Inches): 8.00 Weight (Pounds): 185 General Appearance: no acute distress HEENT: normocephalic, atraumatic, anicteric, EOMI, pharynx normal, supple, no JVD Respiratory/Chest: no respiratory distress, no accessory muscle use, crackles/ rales, rhonchi - bilaterally Cardiovascular: normal rate, regular rhythm, no gallop/murmur, no JVD Abdomen: normal bowel sounds, soft, non tender, no organomegaly, non distended Genitourinary: other - no hinds Extremities: no cyanosis Skin: no rash 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 Complete Laboratory Tests Test 06/07/16 11:15 06/08/16 05:05 Vancomycin Level Trough 13.0 ug/mL (5.0-12.0) H White Blood Count 9.3 K/UL (4.8-10.8) Red Blood Count 2.85 M/UL (4.70-6.10) L Hemoglobin 9.1 G/DL (14.2-18.0) L Hematocrit 26.7 % (42.0-52.0) L Mean Corpuscular Volume 94 FL (80-99) Mean Corpuscular Hemoglobin 31.8 PG (27.0-31.0) H Mean Corpuscular Hemoglobin Concent 34.0 G/DL (32.0-36.0) Red Cell Distribution Width 13.5 % (11.6-14.8) Platelet Count 230 K/UL (150-450) Mean Platelet Volume 5.7 FL (6.5-10.1) L Neutrophils (%) (Auto) 80.5 % (45.0-75.0) H Lymphocytes (%) (Auto) 10.9 % (20.0-45.0) L Monocytes (%) (Auto) 6.0 % (1.0-10.0) Eosinophils (%) (Auto) 1.8 % (0.0-3.0) Basophils (%) (Auto) 0.8 % (0.0-2.0) Sodium Level 135 mEQ/L (135-145) Potassium Level 4.1 mEQ/L (3.4-4.9) Chloride Level 98 mEQ/L (98-107) Carbon Dioxide Level 21 mEQ/L (20-30) Anion Gap 16 (5-15) H Blood Urea Nitrogen 13 mg/dL (7-23) Creatinine 0.7 mg/dL (0.7-1.2) Estimat Glomerular Filtration Rate > 60 mL/min (>60) Glucose Level 85 mg/dL (74-106) Calcium Level 8.2 mg/dL (8.6-10.2) L Current Medications Medications (Trade) Dose Ordered Sig/Jemima Route PRN Reason Start Time Stop Time Status Last Admin Dose Admin Acetaminophen (Tylenol) 650 mg Q4H PRN ORAL Mild Pain (Pain Scale 1-3) 06/05/16 16:45 07/05/16 16:44 06/06/16 19:55 Citalopram Hydrobromide (celeXA) 40 mg DAILY ORAL 06/05/16 18:00 07/05/16 17:59 06/08/16 08:32 Clozapine (Clozaril) 50 mg DAILY ORAL 06/06/16 09:00 06/13/16 08:59 06/08/16 08:32 Dextrose (Dextrose 50%) STAT PRN IV Hypoglycemia 06/05/16 16:45 07/05/16 16:44 Divalproex Sodium (Depakote) 500 mg BID ORAL 06/05/16 18:00 07/05/16 17:59 06/08/16 08:32 Levothyroxine Sodium (Synthroid) 50 mcg DAILY@0630 ORAL 06/08/16 06:30 07/08/16 06:29 06/08/16 06:12 Pantoprazole (Protonix) 40 mg DAILY ORAL 06/05/16 18:00 07/05/16 17:59 06/08/16 08:32 Piperacillin Sod/ Tazobactam Sod 3.375 gm/Sodium Chloride 110 ml @ 27.5 mls/hr EVERY 8 HOURS IVPB 06/05/16 22:00 06/10/16 21:59 06/08/16 06:26 Promethazine HCl/ Codeine (Phenergan with Codeine) 5 ml Q4H PRN ORAL For Cough 06/06/16 15:15 07/06/16 15:14 Sodium Chloride (NS w/KCl 20mEq) 1,000 ml @ 50 mls/hr Q20H IV 06/05/16 18:00 07/05/16 17:59 06/08/16 06:12 Topiramate (Topamax) 100 mg TWICE A DAY ORAL 06/05/16 18:00 07/05/16 17:59 06/08/16 08:31 Vancomycin HCl 1 ea 1 ea DAILY PRN MISC Per rx protocol 06/05/16 20:45 07/05/16 20:44 Vancomycin HCl/ Dextrose (Vancomycin/D5W) 325 ml @ 162.5 mls/ hr Q12HR@0000,1200 IVPB 06/06/16 12:00 06/11/16 11:59 06/08/16 00:49 MIRLANDE HERNANDEZ Jun 08, 2016 10:29
[2016-06-08 11:48] VITALS: BP 93/58
--- NOTE | 2016-06-08 14:02 | Internal Med Progress Note ---
Subjective Date of Service: Jun 08, 2016 Physician Name Brodie Lopez Attending Physician Ric Isabel MD Current Medications Medications (Trade) Dose Ordered Sig/Jemima Route PRN Reason Start Time Stop Time Status Last Admin Dose Admin Acetaminophen (Tylenol) 650 mg Q4H PRN ORAL Mild Pain (Pain Scale 1-3) 06/05/16 16:45 07/05/16 16:44 06/06/16 19:55 Citalopram Hydrobromide (celeXA) 40 mg DAILY ORAL 06/05/16 18:00 07/05/16 17:59 06/08/16 08:32 Clozapine (Clozaril) 50 mg DAILY ORAL 06/06/16 09:00 06/13/16 08:59 06/08/16 08:32 Dextrose (Dextrose 50%) STAT PRN IV Hypoglycemia 06/05/16 16:45 07/05/16 16:44 Divalproex Sodium (Depakote) 500 mg BID ORAL 06/05/16 18:00 07/05/16 17:59 06/08/16 08:32 Levothyroxine Sodium 50 mcg 50 mcg DAILY@0630 ORAL 06/08/16 06:30 07/08/16 06:29 06/08/16 06:12 Pantoprazole (Protonix) 40 mg DAILY ORAL 06/05/16 18:00 07/05/16 17:59 06/08/16 08:32 Piperacillin Sod/ Tazobactam Sod/ Sodium Chloride (Zosyn/Sodium Chloride) 110 ml @ 27.5 mls/hr EVERY 8 HOURS IVPB 06/08/16 14:00 06/13/16 13:59 Promethazine HCl/ Codeine (Phenergan with Codeine) 5 ml Q4H PRN ORAL For Cough 06/06/16 15:15 07/06/16 15:14 Sodium Chloride (NS w/KCl 20mEq) 1,000 ml @ 50 mls/hr Q20H IV 06/05/16 18:00 07/05/16 17:59 06/08/16 06:12 Topiramate (Topamax) 100 mg TWICE A DAY ORAL 06/05/16 18:00 07/05/16 17:59 06/08/16 08:31 Vancomycin HCl 1 ea 1 ea DAILY PRN MISC Per rx protocol 06/05/16 20:45 07/05/16 20:44 Vancomycin HCl/ Dextrose (Vancomycin/D5W) 325 ml @ 162.5 mls/ hr Q12HR@0000,1200 IVPB 06/06/16 12:00 06/11/16 11:59 06/08/16 12:27 Allergies: Coded Allergies: NO KNOWN DRUG ALLERGIES (Unverified Allergy, Unknown, 11/22/13) TOMATO (Unverified Allergy, Unknown, 11/23/13) TOMATO FOOD ALLERGY ROS Limited/Unobtainable: No Constitutional: Reports: no symptoms HEENT: Reports: no symptoms Cardiovascular: Reports: no symptoms Respiratory: Reports: no symptoms Gastrointestinal/Abdominal: Reports: no symptoms Genitourinary: Reports: no symptoms Subjective 45 YO M admitted with syncope and hyponatremia. Now hypotensive. Cover for Int Med-Dr Isabel. Objective Last Vital Signs Date Time Temp Pulse Resp B/P Pulse Ox O2 Delivery O2 Flow Rate FiO2 06/08/16 11:48 97.9 71 18 93/58 96 Room Air 06/08/16 11:20 21 Laboratory Tests Test 06/08/16 05:05 White Blood Count 9.3 K/UL (4.8-10.8) Red Blood Count 2.85 M/UL (4.70-6.10) L Hemoglobin 9.1 G/DL (14.2-18.0) L Hematocrit 26.7 % (42.0-52.0) L Mean Corpuscular Volume 94 FL (80-99) Mean Corpuscular Hemoglobin 31.8 PG (27.0-31.0) H Mean Corpuscular Hemoglobin Concent 34.0 G/DL (32.0-36.0) Red Cell Distribution Width 13.5 % (11.6-14.8) Platelet Count 230 K/UL (150-450) Mean Platelet Volume 5.7 FL (6.5-10.1) L Neutrophils (%) (Auto) 80.5 % (45.0-75.0) H Lymphocytes (%) (Auto) 10.9 % (20.0-45.0) L Monocytes (%) (Auto) 6.0 % (1.0-10.0) Eosinophils (%) (Auto) 1.8 % (0.0-3.0) Basophils (%) (Auto) 0.8 % (0.0-2.0) Sodium Level 135 mEQ/L (135-145) Potassium Level 4.1 mEQ/L (3.4-4.9) Chloride Level 98 mEQ/L (98-107) Carbon Dioxide Level 21 mEQ/L (20-30) Anion Gap 16 (5-15) H Blood Urea Nitrogen 13 mg/dL (7-23) Creatinine 0.7 mg/dL (0.7-1.2) Estimat Glomerular Filtration Rate > 60 mL/min (>60) Glucose Level 85 mg/dL (74-106) Calcium Level 8.2 mg/dL (8.6-10.2) L Microbiology Date/Time Source Procedure Growth Status 06/07/16 11:40 Sputum Gram Stain Pending Resulted 06/07/16 11:40 Sputum Sputum Culture - Preliminary NO GROWTH Resulted 06/05/16 22:00 Nasal Nares MRSA Culture - Final Staphylococcus Aureus - Mrsa Complete 06/05/16 23:30 Urine,Clean Catch Urine Culture - Final NO GROWTH AFTER 48 HOURS Complete 06/05/16 22:00 Rectum VRE Culture - Final NO VANCOMYCIN RESISTANT ENTEROCOCCUS ... Complete Intake and Output 06/07/16 06/08/16 19:00 07:00 Intake Total 1542.5 ml 720 ml Output Total 150 ml Balance 1392.5 ml 720 ml Intake Oral 480 ml 120 ml IV Total 1062.5 ml 600 ml Output Urine Total 150 ml # Voids 2 1 # Bowel Movements 1 3 Objective General Appearance: WD/WN, no apparent distress, alert EENT: PERRL/EOMI, normal ENT inspection, other - exoptopia OS Neck: non-tender, normal alignment, supple Cardiovascular: normal peripheral pulses, normal rate, regular rhythm, no gallop/murmur, no JVD Respiratory/Chest: chest wall non-tender, lungs clear, normal breath sounds, no respiratory distress, no accessory muscle use Abdomen: normal bowel sounds, non tender, soft, no organomegaly, no mass Extremities: normal range of motion 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 (2) Leukocytosis Assessment & Plan: Cont vanco and zosyn. (3) Major depression Assessment & Plan: Cont clozaril. (4) Mental retardation (5) Hypotension (6) Syncope Assessment & Plan: Serial troponin. (7) Pneumonia Assessment & Plan: Continue vanco and zosyn. (8) Sepsis Assessment & Plan: See ID note. Cont vanco and zosyn Status: progressing Assessment/Plan Discharge planning: Board and care. BRODIE LOPEZ Jun 08, 2016 14:02
[2016-06-08 16:04] VITALS: BP 97/63
--- NOTE | 2016-06-08 19:09 | Pulmonology Progress Note ---
Assessment/Plan Problems: (1) Interstitial pneumonia (2) Sepsis (3) Syncope (4) Hypotension (5) Development delay Subjective Allergies: Coded Allergies: NO KNOWN DRUG ALLERGIES (Unverified Allergy, Unknown, 11/22/13) TOMATO (Unverified Allergy, Unknown, 11/23/13) TOMATO FOOD ALLERGY Objective Last 24 Hour Vital Signs Date Time Temp Pulse Resp B/P Pulse Ox O2 Delivery O2 Flow Rate FiO2 06/08/16 16:04 97.7 77 20 97/63 97 Room Air 06/08/16 15:08 84 06/08/16 11:48 97.9 71 18 93/58 96 Room Air 06/08/16 11:48 70 06/08/16 11:20 69 18 95 Room Air 21 06/08/16 11:05 69 18 95 Room Air 21 06/08/16 08:21 97.0 69 18 92/64 95 Room Air 06/08/16 07:52 70 06/08/16 07:15 88 18 95 Room Air 21 06/08/16 07:00 85 20 95 Room Air 21 06/08/16 04:00 66 06/08/16 04:00 97.3 75 20 107/55 95 Room Air 21 06/08/16 03:06 81 20 95 Room Air 21 06/08/16 03:06 80 20 94 Room Air 21 06/08/16 00:00 74 06/08/16 00:00 97.9 75 20 100/55 97 Room Air 06/07/16 23:43 87 06/07/16 22:54 85 20 93 Room Air 21 06/07/16 22:54 84 20 93 Room Air 21 06/07/16 20:00 88 20 93 Room Air 21 06/07/16 19:59 86 20 92 Room Air 21 Intake and Output 06/07/16 06/08/16 19:00 07:00 Intake Total 1542.5 ml 720 ml Output Total 150 ml Balance 1392.5 ml 720 ml Intake Oral 480 ml 120 ml IV Total 1062.5 ml 600 ml Output Urine Total 150 ml # Voids 2 1 # Bowel Movements 1 3 Microbiology Date/Time Source Procedure Growth Status 06/07/16 11:40 Sputum Gram Stain Pending Resulted 06/07/16 11:40 Sputum Sputum Culture - Preliminary NO GROWTH Resulted 06/05/16 22:00 Nasal Nares MRSA Culture - Final Staphylococcus Aureus - Mrsa Complete 06/05/16 23:30 Urine,Clean Catch Urine Culture - Final NO GROWTH AFTER 48 HOURS Complete 06/05/16 22:00 Rectum VRE Culture - Final NO VANCOMYCIN RESISTANT ENTEROCOCCUS ... Complete Laboratory Tests 06/08/16 05:05: White Blood Count 9.3, Red Blood Count 2.85L, Hemoglobin 9.1L, Hematocrit 26.7L , Mean Corpuscular Volume 94, Mean Corpuscular Hemoglobin 31.8H, Mean Corpuscular Hemoglobin Concent 34.0, Red Cell Distribution Width 13.5, Platelet Count 230, Mean Platelet Volume 5.7L, Neutrophils (%) (Auto) 80.5H, Lymphocytes (%) (Auto) 10.9L, Monocytes (%) (Auto) 6.0, Eosinophils (%) (Auto) 1.8, Basophils (%) (Auto) 0.8, Sodium Level 135, Potassium Level 4.1, Chloride Level 98, Carbon Dioxide Level 21, Anion Gap 16H, Blood Urea Nitrogen 13, Creatinine 0.7, Estimat Glomerular Filtration Rate > 60, Glucose Level 85, Calcium Level 8.2L Current Medications Medications (Trade) Dose Ordered Sig/Jemima Route PRN Reason Start Time Stop Time Status Last Admin Dose Admin Acetaminophen (Tylenol) 650 mg Q4H PRN ORAL Mild Pain (Pain Scale 1-3) 06/05/16 16:45 07/05/16 16:44 06/06/16 19:55 Citalopram Hydrobromide (celeXA) 40 mg DAILY ORAL 06/05/16 18:00 07/05/16 17:59 06/08/16 08:32 Clozapine (Clozaril) 50 mg DAILY ORAL 06/06/16 09:00 06/13/16 08:59 06/08/16 08:32 Dextrose (Dextrose 50%) STAT PRN IV Hypoglycemia 06/05/16 16:45 07/05/16 16:44 Divalproex Sodium (Depakote) 500 mg BID ORAL 06/05/16 18:00 07/05/16 17:59 06/08/16 17:49 Levothyroxine Sodium 50 mcg 50 mcg DAILY@0630 ORAL 06/08/16 06:30 07/08/16 06:29 06/08/16 06:12 Pantoprazole (Protonix) 40 mg DAILY ORAL 06/05/16 18:00 07/05/16 17:59 06/08/16 08:32 Piperacillin Sod/ Tazobactam Sod/ Sodium Chloride (Zosyn/Sodium Chloride) 110 ml @ 27.5 mls/hr EVERY 8 HOURS IVPB 06/08/16 14:00 06/13/16 13:59 06/08/16 14:50 Promethazine HCl/ Codeine (Phenergan with Codeine) 5 ml Q4H PRN ORAL For Cough 06/06/16 15:15 07/06/16 15:14 Sodium Chloride (NS w/KCl 20mEq) 1,000 ml @ 50 mls/hr Q20H IV 06/05/16 18:00 07/05/16 17:59 06/08/16 06:12 Topiramate (Topamax) 100 mg TWICE A DAY ORAL 06/05/16 18:00 07/05/16 17:59 06/08/16 17:48 Vancomycin HCl 1 ea 1 ea DAILY PRN MISC Per rx protocol 06/05/16 20:45 07/05/16 20:44 Vancomycin HCl/ Dextrose (Vancomycin/D5W) 325 ml @ 162.5 mls/ hr Q12HR@0000,1200 IVPB 06/06/16 12:00 06/11/16 11:59 06/08/16 12:27 PHILLIP NAYLOR Jun 08, 2016 19:09
[2016-06-08 20:00] VITALS: BP 95/50
[2016-06-09] VITALS: BP 97/63
[2016-06-09] MEDS: Vancomycin 1.5 GM in D5W 325 ML IVPB SCH (00:24)
[2016-06-09] MEDS: NS w/KCl 20mEq 1,000 ML IV SCH (02:08)
[2016-06-09 04:00] VITALS: BP 96/71
[2016-06-09] MEDS: Piperacillin/Tazobactam 3.375 GM in NS 110 ML IVPB SCH ×2 (06:13→06:16)
[2016-06-09 08:00] VITALS: BP 94/56
[2016-06-09 08:43] LABS: ANION GAP 16 (5-15); CALCIUM 8.3 mg/dL (8.6-10.2); CARBON DIOXIDE 21 mEQ/L (20-30); CHLORIDE 99 mEQ/L (98-107); CREATININE 0.7 mg/dL (0.7-1.2); GLOMERULAR FILTRATION RATE > 60 mL/min (>60); HEMOLYSIS 6; POTASSIUM 4.3 mEQ/L (3.4-4.9); SODIUM 136 mEQ/L (135-145)
--- NOTE | 2016-06-09 08:45 | Diagnostic Imaging Report ---
Indication: Chest pain Technique: XRAY CHEST 1 V Comparison: 06/05/16 Findings: Cardiomediastinal silhouette is stable. There is elevation of the left hemidiaphragm with gaseous distention in the partially visualized upper abdomen. Left basilar atelectasis is noted. Bilateral interstitial opacities are unchanged. Impression: Elevation of the left hemidiaphragm with left basilar atelectasis. Mild interstitial opacities of the bilateral lungs persist.
[2016-06-09 08:46] LABS: BASOPHILS % (AUTO) 1.3 % (0.0-2.0); EOSINOPHILS % (AUTO) 2.9 % (0.0-3.0); LYMPHOCYTES % (AUTO) 15.4 % (20.0-45.0); MEAN CORPUSCULAR HEMOGLOBIN 31.3 PG (27.0-31.0); MEAN CORPUSCULAR HGB CONC 33.8 G/DL (32.0-36.0); MEAN CORPUSCULAR VOLUME 93 FL (80-99); NEUTROPHILS % (AUTO) 73.3 % (45.0-75.0); PLATELET COUNT 289 K/UL (150-450); RED BLOOD COUNT 3.06 M/UL (4.70-6.10); RED CELL DISTRIBUTION WIDTH 13.7 % (11.6-14.8); WHITE BLOOD COUNT 6.9 K/UL (4.8-10.8)
[2016-06-09] MEDS: Topiramate 100mg tab ORAL SCH (08:49)
[2016-06-09] MEDS: Citalopram 20mg Tab ORAL SCH (08:50)
[2016-06-09] MEDS: Depakote 500mg tab ORAL SCH (08:50)
[2016-06-09 12:00] VITALS: BP 87/52
--- NOTE | 2016-06-09 12:16 | Internal Med Progress Note ---
Subjective Date of Service: Jun 09, 2016 Physician Name Jeff Gillis Attending Physician Ric Isabel MD Current Medications Medications (Trade) Dose Ordered Sig/Jemima Route PRN Reason Start Time Stop Time Status Last Admin Dose Admin Acetaminophen (Tylenol) 650 mg Q4H PRN ORAL Mild Pain (Pain Scale 1-3) 06/05/16 16:45 07/05/16 16:44 06/06/16 19:55 Citalopram Hydrobromide (celeXA) 40 mg DAILY ORAL 06/05/16 18:00 07/05/16 17:59 06/09/16 08:50 Clozapine (Clozaril) 50 mg DAILY ORAL 06/06/16 09:00 06/13/16 08:59 06/09/16 08:50 Dextrose (Dextrose 50%) STAT PRN IV Hypoglycemia 06/05/16 16:45 07/05/16 16:44 Divalproex Sodium (Depakote) 500 mg BID ORAL 06/05/16 18:00 07/05/16 17:59 06/09/16 08:50 Levothyroxine Sodium 50 mcg 50 mcg DAILY@0630 ORAL 06/08/16 06:30 07/08/16 06:29 06/09/16 06:09 Pantoprazole (Protonix) 40 mg DAILY ORAL 06/05/16 18:00 07/05/16 17:59 06/09/16 08:50 Piperacillin Sod/ Tazobactam Sod/ Sodium Chloride (Zosyn/Sodium Chloride) 110 ml @ 27.5 mls/hr EVERY 8 HOURS IVPB 06/08/16 14:00 06/13/16 13:59 06/09/16 06:16 Promethazine HCl/ Codeine (Phenergan with Codeine) 5 ml Q4H PRN ORAL For Cough 06/06/16 15:15 07/06/16 15:14 Sodium Chloride (NS w/KCl 20mEq) 1,000 ml @ 50 mls/hr Q20H IV 06/05/16 18:00 07/05/16 17:59 06/09/16 02:08 Topiramate (Topamax) 100 mg TWICE A DAY ORAL 06/05/16 18:00 07/05/16 17:59 06/09/16 08:49 Vancomycin HCl 1 ea 1 ea DAILY PRN MISC Per rx protocol 06/05/16 20:45 07/05/16 20:44 Vancomycin HCl/ Dextrose (Vancomycin/D5W) 325 ml @ 162.5 mls/ hr Q12HR@0000,1200 IVPB 06/06/16 12:00 06/11/16 11:59 06/09/16 00:24 Allergies: Coded Allergies: NO KNOWN DRUG ALLERGIES (Unverified Allergy, Unknown, 11/22/13) TOMATO (Unverified Allergy, Unknown, 11/23/13) TOMATO FOOD ALLERGY ROS Limited/Unobtainable: No Constitutional: Reports: no symptoms HEENT: Reports: no symptoms Cardiovascular: Reports: no symptoms Respiratory: Reports: no symptoms Gastrointestinal/Abdominal: Reports: no symptoms Genitourinary: Reports: no symptoms Neurologic/Psychiatric: Reports: no symptoms Subjective 45 YO M admitted with syncope and hyponatremia. Now pneumonia. Await discharge to [facility] today. Cover for [facility] Isabel. Objective Last Vital Signs Date Time Temp Pulse Resp B/P Pulse Ox O2 Delivery O2 Flow Rate FiO2 06/09/16 08:00 97.3 76 20 94/56 97 Room Air 06/08/16 11:20 21 Laboratory Tests Test 06/09/16 07:40 White Blood Count 6.9 K/UL (4.8-10.8) Red Blood Count 3.06 M/UL (4.70-6.10) L Hemoglobin 9.6 G/DL (14.2-18.0) L Hematocrit 28.4 % (42.0-52.0) L Mean Corpuscular Volume 93 FL (80-99) Mean Corpuscular Hemoglobin 31.3 PG (27.0-31.0) H Mean Corpuscular Hemoglobin Concent 33.8 G/DL (32.0-36.0) Red Cell Distribution Width 13.7 % (11.6-14.8) Platelet Count 289 K/UL (150-450) Mean Platelet Volume 5.0 FL (6.5-10.1) L Neutrophils (%) (Auto) 73.3 % (45.0-75.0) Lymphocytes (%) (Auto) 15.4 % (20.0-45.0) L Monocytes (%) (Auto) 7.0 % (1.0-10.0) Eosinophils (%) (Auto) 2.9 % (0.0-3.0) Basophils (%) (Auto) 1.3 % (0.0-2.0) Sodium Level 136 mEQ/L (135-145) Potassium Level 4.3 mEQ/L (3.4-4.9) Chloride Level 99 mEQ/L (98-107) Carbon Dioxide Level 21 mEQ/L (20-30) Anion Gap 16 (5-15) H Blood Urea Nitrogen 13 mg/dL (7-23) Creatinine 0.7 mg/dL (0.7-1.2) Estimat Glomerular Filtration Rate > 60 mL/min (>60) Glucose Level 81 mg/dL (74-106) Calcium Level 8.3 mg/dL (8.6-10.2) L Microbiology Date/Time Source Procedure Growth Status 06/07/16 11:40 Sputum Gram Stain - Final Resulted 06/07/16 11:40 Sputum Sputum Culture - Preliminary NORMAL UPPER RESPIRATORY MOISE AT 24 ... Resulted Intake and Output 06/08/16 06/09/16 19:00 07:00 Intake Total 1837.5 ml 100 ml Output Total 4 ml Balance 1837.5 ml 96 ml Intake Oral 720 ml IV Total 1117.5 ml 100 ml Output Urine Total 4 ml # Voids 4 Objective General Appearance: WD/WN, no apparent distress, alert EENT: PERRL/EOMI, normal ENT inspection, other - exoptopia OS Neck: non-tender, normal alignment, supple Cardiovascular: normal peripheral pulses, normal rate, regular rhythm, no gallop/murmur, no JVD Respiratory/Chest: chest wall non-tender, lungs clear, normal breath sounds, no respiratory distress, no accessory muscle use Abdomen: normal bowel sounds, non tender, soft, no organomegaly, no mass Extremities: normal range of motion Neurologic: venetian blind mechanic II-XII grossly normal, no motor/sensory deficits Skin: normal pigmentation, warm/dry Assessment/Plan Problem List: (1) Hyponatremia Assessment & Plan: Resolving on IV fluids. (2) Leukocytosis Assessment & Plan: Cont vanco and zosyn. (3) Major depression Assessment & Plan: Cont clozaril. (4) Mental retardation (5) Hypotension (6) Syncope Assessment & Plan: Serial troponin. (7) Pneumonia Assessment & Plan: Continue vanco and zosyn. (8) Sepsis Assessment & Plan: See ID note. Cont vanco and zosyn Status: stable Assessment/Plan Discharge planning: [facility]ilia [facility] and care today. JEFF GILLIS Jun 09, 2016 12:15
--- NOTE | 2016-06-09 13:23 | Infectious Diseases Prog Note ---
Assessment/Plan Assessment/Plan A) 1) cap pna vs aspiration/hcap pna - sc negative 2) sepsis, leukocytosis better, fevers resolved, weakness, uc-negative 3) anemia, intellectual disability, ? sz disease, ? psychiatric disease 4) allergies - tomato, nkda, fh-nc, sh-negative, mar noted, notes and records reviewed 5) d/w RN 6) mrsa colonization P) 1) zosyn and vancomycin - can transition to oral abx 2) clinically stable ID standpoint 3) continue treatment per primary and consultants 4) orders entered and noted 5) skin care per protocol 6) d/w Dr. Gillis Subjective Constitutional: Denies: fever HEENT: Denies: congestion Respiratory: Denies: shortness of breath Cardiovascular: Denies: chest pain Gastrointestinal/Abdominal: Denies: diarrhea, nausea, vomiting Genitourinary: Denies: dysuria Psychiatric: Denies: depression Hematologic: Denies: bleeding Musculoskeletal: Denies: pain Allergies: Coded Allergies: NO KNOWN DRUG ALLERGIES (Unverified Allergy, Unknown, 11/22/13) TOMATO (Unverified Allergy, Unknown, 11/23/13) TOMATO FOOD ALLERGY Objective Vital Signs Last 24 Hour Vital Signs Date Time Temp Pulse Resp B/P Pulse Ox O2 Delivery O2 Flow Rate FiO2 06/09/16 08:00 97.3 76 20 94/56 97 Room Air 06/09/16 04:00 98.1 67 20 96/71 98 Room Air 06/09/16 04:00 64 06/09/16 03:13 69 06/09/16 00:00 97.7 72 20 97/63 97 Room Air 06/08/16 20:00 106 06/08/16 20:00 98.1 85 18 95/50 97 Room Air 06/08/16 16:04 97.7 77 20 97/63 97 Room Air 06/08/16 15:08 84 Height (Feet): 5 Height (Inches): 8.00 Weight (Pounds): 185 General Appearance: no acute distress HEENT: normocephalic, atraumatic, anicteric, mucous membranes moist, PERRL, EOMI, pharynx normal, supple, no JVD Respiratory/Chest: lungs clear, normal breath sounds, no respiratory distress, no accessory muscle use Cardiovascular: normal rate, regular rhythm, no gallop/murmur, no JVD Abdomen: normal bowel sounds, soft, non tender, no organomegaly, non distended Genitourinary: other - no hinds Extremities: no cyanosis Skin: no rash Neurologic/Psychiatric: alert, responsive Lymphatic: no neck adenopathy Musculoskeletal: no effusion Objective chest x-ray - right infiltrate (noted, reviewed) chest x-ray - 06/08 - interstitial opacities, left atx Microbiology Date/Time Source Procedure Growth Status 06/07/16 11:40 Sputum Gram Stain - Final Resulted 06/07/16 11:40 Sputum Sputum Culture - Preliminary NORMAL UPPER RESPIRATORY MOISE AT 24 ... Resulted 06/05/16 23:30 Urine,Clean Catch Urine Culture - Final NO GROWTH AFTER 48 HOURS Complete 06/05/16 22:00 Rectum VRE Culture - Final NO VANCOMYCIN RESISTANT ENTEROCOCCUS ... Complete Microbiology Date/Time Source Procedure Growth Status 06/07/16 11:40 Sputum Gram Stain - Final Resulted 06/07/16 11:40 Sputum Sputum Culture - Preliminary NORMAL UPPER RESPIRATORY MOISE AT 24 ... Resulted Laboratory Tests Test 06/09/16 07:40 White Blood Count 6.9 K/UL (4.8-10.8) Red Blood Count 3.06 M/UL (4.70-6.10) L Hemoglobin 9.6 G/DL (14.2-18.0) L Hematocrit 28.4 % (42.0-52.0) L Mean Corpuscular Volume 93 FL (80-99) Mean Corpuscular Hemoglobin 31.3 PG (27.0-31.0) H Mean Corpuscular Hemoglobin Concent 33.8 G/DL (32.0-36.0) Red Cell Distribution Width 13.7 % (11.6-14.8) Platelet Count 289 K/UL (150-450) Mean Platelet Volume 5.0 FL (6.5-10.1) L Neutrophils (%) (Auto) 73.3 % (45.0-75.0) Lymphocytes (%) (Auto) 15.4 % (20.0-45.0) L Monocytes (%) (Auto) 7.0 % (1.0-10.0) Eosinophils (%) (Auto) 2.9 % (0.0-3.0) Basophils (%) (Auto) 1.3 % (0.0-2.0) Sodium Level 136 mEQ/L (135-145) Potassium Level 4.3 mEQ/L (3.4-4.9) Chloride Level 99 mEQ/L (98-107) Carbon Dioxide Level 21 mEQ/L (20-30) Anion Gap 16 (5-15) H Blood Urea Nitrogen 13 mg/dL (7-23) Creatinine 0.7 mg/dL (0.7-1.2) Estimat Glomerular Filtration Rate > 60 mL/min (>60) Glucose Level 81 mg/dL (74-106) Calcium Level 8.3 mg/dL (8.6-10.2) L Current Medications Medications (Trade) Dose Ordered Sig/Jemima Route PRN Reason Start Time Stop Time Status Last Admin Dose Admin Acetaminophen (Tylenol) 650 mg Q4H PRN ORAL Mild Pain (Pain Scale 1-3) 06/05/16 16:45 07/05/16 16:44 06/06/16 19:55 Citalopram Hydrobromide (celeXA) 40 mg DAILY ORAL 06/05/16 18:00 07/05/16 17:59 06/09/16 08:50 Clozapine (Clozaril) 50 mg DAILY ORAL 06/06/16 09:00 06/13/16 08:59 06/09/16 08:50 Dextrose (Dextrose 50%) STAT PRN IV Hypoglycemia 06/05/16 16:45 07/05/16 16:44 Divalproex Sodium (Depakote) 500 mg BID ORAL 06/05/16 18:00 07/05/16 17:59 06/09/16 08:50 Levothyroxine Sodium 50 mcg 50 mcg DAILY@0630 ORAL 06/08/16 06:30 07/08/16 06:29 06/09/16 06:09 Pantoprazole (Protonix) 40 mg DAILY ORAL 06/05/16 18:00 07/05/16 17:59 06/09/16 08:50 Piperacillin Sod/ Tazobactam Sod/ Sodium Chloride (Zosyn/Sodium Chloride) 110 ml @ 27.5 mls/hr EVERY 8 HOURS IVPB 06/08/16 14:00 06/13/16 13:59 06/09/16 06:16 Promethazine HCl/ Codeine (Phenergan with Codeine) 5 ml Q4H PRN ORAL For Cough 06/06/16 15:15 07/06/16 15:14 Sodium Chloride (NS w/KCl 20mEq) 1,000 ml @ 50 mls/hr Q20H IV 06/05/16 18:00 07/05/16 17:59 06/09/16 02:08 Topiramate (Topamax) 100 mg TWICE A DAY ORAL 06/05/16 18:00 07/05/16 17:59 06/09/16 08:49 Vancomycin HCl 1 ea 1 ea DAILY PRN MISC Per rx protocol 06/05/16 20:45 07/05/16 20:44 Vancomycin HCl/ Dextrose (Vancomycin/D5W) 325 ml @ 162.5 mls/ hr Q12HR@0000,1200 IVPB 06/06/16 12:00 06/11/16 11:59 06/09/16 00:24 MIRLANDE HERNANDEZ Jun 09, 2016 13:23
--- NOTE | 2016-06-09 14:33 | Cardiac Electrophysiology PN ---
Assessment/Plan Assessment/Plan 1. Syncopal episode. Etiology is not clear. The patient was ruled out for myocardial infarction. EKG is nonischemic. Echocardiogram final report pending. EF 55% preliminary. 2. Possible sepsis with leukocytosis and hypotension. On IV antibiotics with vancomycin and Zosyn. 3. Questionable history of seizure disorder. 4. Mental retardation. MARTIN VILLAREAL DC planning back to [facility] today. Subjective Subjective Pleasantly confused. No chest pain or SOB. In SR. Objective Last 24 Hour Vital Signs Date Time Temp Pulse Resp B/P Pulse Ox O2 Delivery O2 Flow Rate FiO2 06/09/16 08:00 97.3 76 20 94/56 97 Room Air 06/09/16 04:00 98.1 67 20 96/71 98 Room Air 06/09/16 04:00 64 06/09/16 03:13 69 06/09/16 00:00 97.7 72 20 97/63 97 Room Air 06/08/16 20:00 106 06/08/16 20:00 98.1 85 18 95/50 97 Room Air 06/08/16 16:04 97.7 77 20 97/63 97 Room Air 06/08/16 15:08 84 Intake and Output 06/08/16 06/09/16 19:00 07:00 Intake Total 1837.5 ml 100 ml Output Total 4 ml Balance 1837.5 ml 96 ml Intake Oral 720 ml IV Total 1117.5 ml 100 ml Output Urine Total 4 ml # Voids 4 Laboratory Tests Test 06/09/16 07:40 White Blood Count 6.9 K/UL (4.8-10.8) Red Blood Count 3.06 M/UL (4.70-6.10) L Hemoglobin 9.6 G/DL (14.2-18.0) L Hematocrit 28.4 % (42.0-52.0) L Mean Corpuscular Volume 93 FL (80-99) Mean Corpuscular Hemoglobin 31.3 PG (27.0-31.0) H Mean Corpuscular Hemoglobin Concent 33.8 G/DL (32.0-36.0) Red Cell Distribution Width 13.7 % (11.6-14.8) Platelet Count 289 K/UL (150-450) Mean Platelet Volume 5.0 FL (6.5-10.1) L Neutrophils (%) (Auto) 73.3 % (45.0-75.0) Lymphocytes (%) (Auto) 15.4 % (20.0-45.0) L Monocytes (%) (Auto) 7.0 % (1.0-10.0) Eosinophils (%) (Auto) 2.9 % (0.0-3.0) Basophils (%) (Auto) 1.3 % (0.0-2.0) Sodium Level 136 mEQ/L (135-145) Potassium Level 4.3 mEQ/L (3.4-4.9) Chloride Level 99 mEQ/L (98-107) Carbon Dioxide Level 21 mEQ/L (20-30) Anion Gap 16 (5-15) H Blood Urea Nitrogen 13 mg/dL (7-23) Creatinine 0.7 mg/dL (0.7-1.2) Estimat Glomerular Filtration Rate > 60 mL/min (>60) Glucose Level 81 mg/dL (74-106) Calcium Level 8.3 mg/dL (8.6-10.2) L Microbiology Date/Time Source Procedure Growth Status 06/07/16 11:40 Sputum Gram Stain - Final Resulted 06/07/16 11:40 Sputum Sputum Culture - Preliminary NORMAL UPPER RESPIRATORY MOISE AT 24 ... Resulted Objective NECK: Showed no JVD or carotid bruits. LUNGS: Clear. CARDIOVASCULAR: Shows regular S1 and S2 with no gallop or murmur. ABDOMEN: Soft. EXTREMITIES: No pitting edema. LIVIER THOMPSON Jun 09, 2016 14:33
--- NOTE | 2016-06-09 15:31 | Cardiology Report ---
APPROVED REPORT EXAM: Two-dimensional and M-mode echocardiogram with Doppler and color Doppler. INDICATION Syncope M-Mode DIMENSIONS IVSd1.3 (0.7-1.1cm)Left Atrium (MM)3.8 (1.6-4.0cm) LVDd4.9 (3.5-5.6cm)Aortic Root3.1 (2.0-3.7cm) PWd1.0 (0.7-1.1cm)Aortic Cusp Exc.2.0 (1.5-2.0cm) LVDs3.1 (2.5-4.0cm) PWs1.4 cm Technically difficult study due to poor acoustic windows. Study quality precludes accurate assessment of regional wall motion. Normal left ventricular chamber size, systolic function and wall motion. Left ventricular ejection fraction estimated to be 55 %. Mild left ventricular hypertrophy. No evidence of ventricular hypertrophy. All other cardiac chamber sizes are within normal limits. Mild focal aortic valve sclerosis with adequate cusp excursion. Mildly thickened mitral valve leaflets with normal excursion. Mild mitral annulus and aortic root calcification. Normal pulmonic valve structure. Normal tricuspid valve structure. IVC dilated at 1.9 cm with physiologic collapse. A color flow and spectral Doppler study was performed and revealed: No aortic regurgitation. Trace mitral regurgitation. Mitral inflow velocities indicates possible pseudo normalization pattern implying significant left ventricular diastolic dysfunction (Grade II). Trace tricuspid regurgitation. Tricuspid systolic velocities suggests peak right ventricular systolic pressure of 15 mmHg. No pulmonic regurgitation present.
[2016-06-09] MEDS ORDERED: NS 275ml ONE (18:44)
[2016-06-09] MEDS ORDERED: NS 550ML IV ONE (18:44)
--- NOTE | 2016-06-09 19:44 | Pulmonology Progress Note ---
Assessment/Plan Problems: (1) Interstitial pneumonia (2) Sepsis (3) Syncope (4) Hypotension (5) Development delay Subjective Allergies: Coded Allergies: NO KNOWN DRUG ALLERGIES (Unverified Allergy, Unknown, 11/22/13) TOMATO (Unverified Allergy, Unknown, 11/23/13) TOMATO FOOD ALLERGY Objective Last 24 Hour Vital Signs Date Time Temp Pulse Resp B/P Pulse Ox O2 Delivery O2 Flow Rate FiO2 06/09/16 12:00 81 06/09/16 12:00 97.3 76 20 87/52 97 Room Air 06/09/16 08:00 75 06/09/16 08:00 97.3 76 20 94/56 97 Room Air 06/09/16 04:00 98.1 67 20 96/71 98 Room Air 06/09/16 04:00 64 06/09/16 03:13 69 06/09/16 00:00 97.7 72 20 97/63 97 Room Air 06/08/16 20:00 106 06/08/16 20:00 98.1 85 18 95/50 97 Room Air Intake and Output 06/08/16 06/09/16 19:00 07:00 Intake Total 1837.5 ml 100 ml Output Total 4 ml Balance 1837.5 ml 96 ml Intake Oral 720 ml IV Total 1117.5 ml 100 ml Output Urine Total 4 ml # Voids 4 Microbiology Date/Time Source Procedure Growth Status 06/07/16 11:40 Sputum Gram Stain - Final Resulted 06/07/16 11:40 Sputum Sputum Culture - Preliminary NORMAL UPPER RESPIRATORY MOISE AT 24 ... Resulted Laboratory Tests 06/09/16 07:40: White Blood Count 6.9, Red Blood Count 3.06L, Hemoglobin 9.6L, Hematocrit 28.4L , Mean Corpuscular Volume 93, Mean Corpuscular Hemoglobin 31.3H, Mean Corpuscular Hemoglobin Concent 33.8, Red Cell Distribution Width 13.7, Platelet Count 289, Mean Platelet Volume 5.0L, Neutrophils (%) (Auto) 73.3, Lymphocytes ( %) (Auto) 15.4L, Monocytes (%) (Auto) 7.0, Eosinophils (%) (Auto) 2.9, Basophils (%) (Auto) 1.3, Sodium Level 136, Potassium Level 4.3, Chloride Level 99, Carbon Dioxide Level 21, Anion Gap 16H, Blood Urea Nitrogen 13, Creatinine 0.7, Estimat Glomerular Filtration Rate > 60, Glucose Level 81, Calcium Level 8.3L PHILLIP NAYLOR Jun 09, 2016 19:44
--- NOTE | 2016-06-10 02:58 | Consultation ---
DATE OF CONSULTATION: CONSULTING PHYSICIAN: Sailaja Nguyen M.D. ATTENDING PHYSICIAN: Angela Pruitt M.D. CHIEF COMPLAINT: Sacral pain, assess for sacral pressure ulcer. HISTORY OF PRESENT ILLNESS: This is a 45-year-old gentleman, who was admitted on 06/05/2016 with sepsis creating dizziness and hypertension. The patient states that he uses a wheelchair and complaints of some sacral pain. PAST MEDICAL HISTORY: The patient has developmental delay and also depression. MEDICATIONS: Outpatient medications are: 1. Celexa. 2. Motrin. 3. Clozaril. 4. Depakote. 5. Topamax. IN THE HOSPITAL HE WAS ON: 6. Piperacillin. 7. Tazobactam. 8. Synthroid. 9. Phenergan. 10. Vancomycin. 11. Clozaril. 12. Protonix. 13. Citalopram. 14. Topamax. PHYSICAL EXAMINATION: GENERAL: The patient is alert and oriented, in no acute distress. He does have mental delay, but he is able to communicate well. He complains of some sacral pain. CARDIOVASCULAR: Regular rate and rhythm. LUNGS: Clear to auscultation bilaterally. EXTREMITIES: Good range of motion. I turned the patient, I inspected his entire back and the sacral area, I did see any areas of redness or nonblanching erythema. ASSESSMENT: The patient with developmental delay. He told me that he does uses wheelchair and also assistance with repositioning. Recommendations are to assess the patient with turning and repositioning q.2 hours. Also, to make sure that the patient stays clean and dry and if there is any incontinence to use Barrier cream to the sacral area. Sailaja Nguyen M.D. DR: KAYLEE JOB#: [id number] CC:
[2016-06-10] MEDS ORDERED: CEPHALEXIN500 M1 ORAL (10:42)
--- NOTE | 2016-06-10 10:50 | Discharge Summary ---
Discharge Summary Hospital Course Date of Admission Jun 05, 2016 at 13:55 Date of Discharge Jun 09, 2016 at 18:45 Admitting Diagnosis HPI Gelacio Last is a 45 year old male who was admitted on Jun 05, 2016 at 13:55 for Sepsis, Hypotension Hospital Course dc summary # [id number] Discharge Medications New Medications: Cephalexin* (Cephalexin*) 500 Mg Tablet 500 MG ORAL EVERY 12 HOURS, #8 CAP Continued Medications: Citalopram Hydrobromide* (Celexa*) 20 Mg Tablet 40 MG ORAL DAILY, TAB Clozapine* (Clozaril*) 100 Mg Tab 50 MG ORAL DAILY, #30 TAB Divalproex Sodium (Divalproex Sodium) 500 Mg Tablet.dr 500 MG PO BID, TAB Ibuprofen* (Motrin*) 600 Mg Tablet 600 MG ORAL Q8H PRN for For Pain, #30 TAB 0 Refills Topiramate* (Topamax*) 100 Mg Tablet 100 MG ORAL TWICE A DAY, #60 TAB 0 Refills Discharge Condition Upon Discharge: stable Discharge Disposition Patient was discharged to [facility] (01) Discharge Diagnoses: Discharge Instructions Discharge Instructions Special Instructions I have been assigned to complete a D/C Summary on this account. I was not involved in the patient management Shy Nayak NP (Vanchtein) Jun 10, 2016 10:50
--- NOTE | 2016-06-11 02:58 | Discharge Summary 2 SIG ---
DATE OF ADMISSION: 06/05/2016 DATE OF DISCHARGE: 06/09/2016 REASON FOR ADMISSION: 45-year-old male, resident of [facility] [place] with history of mental retardation, became dizzy, according to the staff in [facility] [place] and passed out. He was out for less than one minute. The patient initially was taken to [facility] Emergency Room for evaluation. In [facility], he was diagnosed with possible sepsis and transferred for further workup to [facility] telemetry floor. ADMITTING DIAGNOSES: sepsis PNA syncope hypotension developmental delay hyponatremia HOSPITAL STAY: Upon presentation, the patient was afebrile. Initially with mild leukocytosis -11.3. No tachycardia, no tachypnea. Low blood pressure - 90/54. The patient was started on empiric antibiotics. Sputum culture was positive for yeast. Urine culture was negative. Initial chest x-ray revealed evidence of diffuse faint infiltrate in the right lung. Followup chest x-ray revealed mild interstitial opacity bilaterally. While in the hospital, the patient was on IV antibiotics. ID closely followed. ID cleared for discharge and change antibiotics to oral . Fever initially present, resolved. Leukocytosis resolved. Heating Plant Superintendent followed the patient. Per riveting machine operator automatic, the patient was ruled out for acute MD. EKG showed no ischemic changes. Serial troponin x2 were negative. Echocardiogram revealed ejection fraction of 55% and mild left ventricular hypertrophy. According to riveting machine operator automatic, unclear etiology of syncopal episode, however dizziness resolved and blood pressure improved with mild IV hydration. Possibly syncope of vasovagal origin, due to dehydration, Hemoglobin and hematocrit remained at the baseline. Anemia workup revealed low iron. Stool OB was positive, however CEA was within normal limits. Recommended closely monitor hemoglobin and hematocrit by PMD, get additional stool for occult blood and consider outpatient GI procedure. if an additional stool OB will come up positive. The patient was noted to have mild hyponatremia, which resolved with IV fluids , likely depletional. It was presumed that hypotension, dizziness, and syncope were all likely secondary to dehydration. since with volume repletion, all the symptoms resolved. No evidence of arrhythmia on the monitor. No neurological symptoms. DISCHARGE DIAGNOSES: 1. Sepsis. 2. Community-acquired pneumonia versus aspiration. 3. Hypotension, due to dehydration -resolved . 4. Syncopal episode , likely secondary to dehydration, -resolved. 5. Dehydration 6. Developmental delay. 7. Iron-deficiency anemia. 7. Mild hyponatremia, resolved, likely depletional. DISCHARGE MEDICATIONS: See medication reconciliation list. DISCHARGE INSTRUCTIONS: Follow up with the primary medical doctor. Ric Isabel M.D. I have been assigned to dictate discharge summary on this account and I was not involved in the patient's management. Shy Escobarlisa N.PLora DR: Demetris JOB#: [id number] CC: RADHA
--- NOTE | 2016-06-11 16:17 | Cardiology Report ---
APPROVED REPORT EKG Measurement Heart [id number] Normal sinus rhythm Right bundle branch block Inferior infarct, age undetermined Cannot rule out Anterior infarct, age undetermined Abnormal ECG
== END 2016-06-09 18:45 | DRG 871 ==
LOC: 2E 13:55
DX: A41.9 Sepsis, unspecified organism (principal); J18.9 Pneumonia, unspecified organism; I95.9 Hypotension, unspecified; E87.1 Hypo-osmolality and hyponatremia; F32.9 Major depressive disorder, single episode, unspecified; F09 Unspecified mental disorder due to known physiological condition; R62.50 Unspecified lack of expected normal physiological development in childhood; D50.9 Iron deficiency anemia, unspecified; M53.3 Sacrococcygeal disorders, not elsewhere classified
CPT/HCPCS: 36415; 71010; 76700; 80048; 80053; 80076; 80202; 81003; 82270; 82378; 82607; 82746; 83540; 83550; 83615; 83880; 84439; 84443; 84484; 85007; 85025; 85044; 85060; 85610; 85651; 85730; 87070; 87081; 87086; 87205; 93005; 93306